=== PATIENT | female | born 1950 | race Caucasian/White ===

== ENCOUNTER 2018-11-04 13:20 | Emergency (ER) | payer MEDICARE, OTHER, SELFPAY ==
[2018-11-04 13:21] VITALS: BP 133/69; PULSE 90; RESP 16; TEMP 36.8; O2SAT 100; BMI 23.3
[2018-11-04] MEDS: 0.9% Normal Saline 1,000 ML 125 ML IV (13:56)
[2018-11-04] MEDS: Ondansetron 4 MG/2 ML Vial IV (13:57)
[2018-11-04] MEDS: Ketorolac 30 MG/ML Syringe 15 MG IV (13:57)
[2018-11-04 14:08] LABS: Absolute Lymphocyte Count 2.56 X10^3/uL (0.83-4.51); Absolute Neutrophil Count 7.7 X10^3/uL (2.0-7.7); Basophil# 0.08 X10^3/uL; Basophil% 0.7 % (0-1); Eosinophils% 0.9 % (0-5); Hemoglobin 12.7 g/dL (12.0-15.0); Lymphocyte # 2.56 X10^3/ul (4.0); Lymphocyte % 22.8 % (19-41); Mean Corp Hgb Conc 33.4 g/dL (32-36); Mean Corpuscular Hgb 28.8 pg (27.0-32.0); Mean Corpuscular Volume 86.2 fL (81-99); Mean Platelet Vol. 9.6 fl (6.2-12.0); Monocyte# 0.74 X10^3/uL; Monocyte% 6.6 % (0-10); NRBC Flagged by Analyzer 0 % (0-5); Neutrophil % 68.7 % (47-70); Platelet Count 310 K/mm3 (150-450); RBC Distribution Width CV 12.6 % (11.6-14.6); RBC Distribution Width SD 39.6 fl (35.1-43.9); Red Blood Count 4.41 M/mm3 (4.2-5.4); White Blood Count 11.2 K/mm3 (4.4-11.0)
[2018-11-04 14:21] LABS: Anion Gap 7 (5-15); BUN 13 mg/dL (7-18); BUN/Creat Ratio 17.7 RATIO (10-20); Chloride 105 mmol/L (98-107); Creatinine, Serum 0.74 mg/dL (0.55-1.02); EST Glomerular Filtration Rate 83 mL/min (>60); Est Glom Filt Rate - Afr Amer 101 mL/min (>60); Estimated Creatinine Clearance 51.63 ml/min; Glucose 85 mg/dL (74-106); Potassium 3.9 mmol/L (3.5-5.1); Sodium Level 137 mmol/L (136-145)
--- NOTE | 2018-11-04 14:30 | CT_ITS ---
STUDY: CT ABDOMEN AND PELVIS WITHOUT CONTRAST REASON FOR EXAM: Female, 67 years old. Left lower quadrant pain. RADIATION DOSAGE (If Supplied By Facility): CTDIvol = ( 10.69 ) mGy, DLP = ( 958.58 ) mGycm TECHNIQUE: Transaxial images were obtained from the dome of the diaphragm to the symphysis pubis without oral contrast, and without intravenous contrast. Sagittal and coronal images were reconstructed. Individualized dose optimization techniques were used for this CT. COMPARISON: None. FINDINGS: The visualized lung bases are unremarkable. The visualized portions of the heart are within normal limits. There is decreased attenuation of the liver consistent with steatosis. Normal gallbladder and extrahepatic biliary system. Normal spleen. Normal pancreas. Normal bilateral adrenal glands. Normal right kidney. Left renal parapelvic cysts. There is a small hiatal hernia. Fluid is seen in the lower esophagus in keeping with the patient's history of vomiting. Normal small intestine. There are multiple colonic diverticula consistent with diverticulosis. The appendix is visualized and appears normal. Normal abdominal aorta. Normal inferior vena cava. Normal retroperitoneum. Normal urinary bladder. Normal abdominal wall. There are degenerative changes of the visualized lumbar spine. CT/Abdomen/Pelvis W IV Cont ONLY IMPRESSION: Fatty infiltration of the liver. Left parapelvic renal cysts. Electronically Signed: Roger Evans, at 15:00 EDT , Service support ,
--- NOTE | 2018-11-04 14:37 | ED.DCSUM_ITS ---
- ER Visit Summary Date of Service: 11/04/18 Chief Complaint: Left lower quadrant abdominal pain History of Present Illness: The patient is a 67 F who presents the emergency department with left lower quadrant pain. She states for the past week and half she has felt that perhaps she had a urinary tract infection. She notes urgency frequency and a strong smell to the urine. She states that when she woke today she had significant pain in the left lower quadrant described as sharp worse with movement touch trying to put her pants on. He has no history of kidney stones or diverticulitis. She went to urgent care to get urine was performed that was positive for nitrates and leukocyte esterase. She was advised to come to the emergency room. She denies any fevers. She does note some nausea. Physical Examination: Afebrile vital signs are stable Gen: Well-nourished well-developed Head: Normocephalic atraumatic Eyes: Perrl EOMI ENT: TMs clear no rhinorrhea moist mucous membranes Neck: Supple no lymphadenopathy no JVD nontender CVS: Regular rate rhythm no murmurs normal S1-S2 Respiratory: No distress clear to auscultation bilaterally chest nontender Abdomen: Soft tender palpation with guarding in the left lower quadrant r nondistended normal bowel sounds no masses Back: Nontender Extremity: Nontender no edema Skin: Normal color no rash Neuro: alert orientated ?3 CN II-XII intact normal strength sensation reflexes gait cerebellar Psych: Normal affect normal mood Test Results: White count elevated 11.2. BMP is normal. Emergency Department Course and Treatment: IV fluids Toradol and Zofran. She specifically requested not to have stronger pain medication. In reviewing the CT the I believe the patient has sigmoid diverticulosis with a focal area of diverticulitis. Will place her on Cipro and Flagyl. I have asked that she follow-up with her primary care physician. I will write her a few [place] at her request but she states she would prefer to stick with ibuprofen. She had a colonoscopy 5 years ago Impression: 1. Acute sigmoid diverticulitis This note was generated with [employer] software. It may contain incorrect words, spelling, and punctuation that were not noted in review of the chart prior to signing ED Disposition - Plan for ED Patient: Disposition: Home or Assisted Living Instructions: Diverticulitis Prescriptions: Ciprofloxacin [Cipro] 500 mg PO BID #14 tab Prescription Printed metroNIDAZOLE [Flagyl] 500 mg PO Q8H #21 tab Prescription Printed Hydrocodone Bitart/Apap 5-325 [[place] 5MG-325MG] 1 tab PO Q6H PRN PRN 3 Days #10 tab PRN Reason: Pain Prescription Printed Referrals: Brayden Alberto MD [Primary Care Provider] - 3-5 Days if not improving
[2018-11-04 15:15] LABS: Mucous, Urine 0 SEEN /hpf (<or=2+)
[2018-11-04 15:23] VITALS: BP 138/77; PULSE 78; RESP 18; O2SAT 99
[2018-11-04 15:27] LABS: Color, Urine Straw (Yellow); Glucose, Dipstick Normal (Normal); Ketone-Dipstick 5 mg/dl (Negative); Leukocyte Esterase-Dipstick 500 /ul (Negative); Nitrite-Dipstick Positive (Negative); Occult Blood-Urine Negative /ul (Negative); Protein-Dipstick Negative (Negative); Urine Bilirubin Dipstick Negative (Negative); Urine Clarity Sl. Cloudy (Clear); Urine Urobilinogen Normal (Normal)
[2018-11-04 15:35] LABS: Squamous Epithelial Cells - UA 0-5 SEEN /hpf (5-10)
[2018-11-04 15:37] LABS: Bacteria 3+ /hpf (None Seen); Red Blood Cells-Urine 0-5 SEEN /hpf (0-5); White Blood Cells 0-5 SEEN /hpf (0-5)
== END 2018-11-04 15:24 | disposition home or self-care (01) ==
PROVIDERS: Emergency Provider Emergency Medicine; Family Provider Family Medicine; PCP Family Medicine
DX: K57.32 Diverticulitis of large intestine without perforation or abscess without bleeding (principal)
CPT/HCPCS: 74177; 80048; 81001; 85025; 87086; 87088; 87186; 96361; 96374; 96375; 99284; J7030; Q9967; A4216; J2405

== ENCOUNTER 2018-11-25 19:06 | Inpatient (IN) | payer MEDICARE, OTHER, SELFPAY ==
[2018-11-25 19:07] VITALS: BP 110/69; PULSE 87; RESP 17; TEMP 36.8; O2SAT 99; BMI 22.7
--- NOTE | 2018-11-25 19:38 | CT_ITS ---
STUDY: CT ABDOMEN AND PELVIS WITH CONTRAST REASON FOR EXAM: Female, 68 years old. Abdominal pain, diverticulitis, diarrhea since yesterday RADIATION DOSAGE (If Supplied By Facility): CTDIvol = ( 12.66 ) mGy, DLP = ( 550.17 ) mGycm TECHNIQUE: Transaxial images were obtained from the dome of the diaphragm to the symphysis pubis without oral contrast. IV/Oral Isovue 300 100ML was administered. Sagittal and coronal images were reconstructed. Individualized dose optimization techniques were used for this CT. COMPARISON: Previous study of 11/04/2018 FINDINGS: The visualized lung bases are unremarkable. The visualized portions of the heart are within normal limits. Normal liver. Normal gallbladder and extrahepatic biliary system. Normal spleen. Normal pancreas. Normal bilateral adrenal glands. Normal right kidney. There are left renal parapelvic cysts. There is a small hiatal hernia. Normal small intestine. There is colonic diverticulosis most severely affecting the sigmoid. There is mild perisigmoidal fatty stranding compatible with diverticulitis. There is no evidence of extraluminal gas or abnormal fluid collection. There is non-visualization of the appendix. There are calcified plaques of the abdominal aorta. Normal inferior vena cava. Normal retroperitoneum. Normal urinary bladder. There is a small umbilical hernia containing fat. There are diffuse degenerative changes of the visualized lumbar spine. CT/Abdomen/Pelvis WITH Contrast IMPRESSION: 1. Colonic diverticulosis most severely affecting the sigmoid. There is mild perisigmoidal fatty stranding compatible with diverticulitis. There is no evidence of associated extraluminal gas or abnormal fluid collection in the region. 2. Left renal parapelvic cysts. 3. Small hiatal hernia. 4. Small fat-containing umbilical hernia. Electronically Signed: George Gonzalez MD at 22:28 EDT , Service support ,
[2018-11-25] MEDS: Ondansetron 4 MG/2 ML Vial IV (20:00)
[2018-11-25] MEDS: Morphine 4 MG/ML Syringe IV ×3 (20:01→21:30)
[2018-11-25] MEDS: 0.9% Normal Saline 1,000 ML 1000 ML IV (20:02)
[2018-11-25 20:04] LABS: Absolute Lymphocyte Count 1.64 X10^3/uL (0.83-4.51); Absolute Neutrophil Count 11.8 X10^3/uL (2.0-7.7); Basophil# 0.06 X10^3/uL; Basophil% 0.4 % (0-1); Eosinophil# 0.32 X10^3/uL; Eosinophils% 2.1 % (0-5); Hematocrit 37.6 % (37-47); Hemoglobin 12.6 g/dL (12.0-15.0); Lymphocyte # 1.64 X10^3/ul (4.0); Mean Corp Hgb Conc 33.5 g/dL (32-36); Mean Corpuscular Hgb 29.1 pg (27.0-32.0); Mean Corpuscular Volume 86.8 fL (81-99); Mean Platelet Vol. 9.5 fl (6.2-12.0); Monocyte% 7.3 % (0-10); NRBC Flagged by Analyzer 0 % (0-5); Neutrophil # 11.77 X10^3/uL (2.7-7.7); Neutrophil % 78.7 % (47-70); Platelet Count 296 K/mm3 (150-450); RBC Distribution Width CV 12.8 % (11.6-14.6); RBC Distribution Width SD 40.6 fl (35.1-43.9); Red Blood Count 4.33 M/mm3 (4.2-5.4)
[2018-11-25 20:21] LABS: AST(SGOT) 14 U/L (15-37); Alanine Aminotransfer ALT/SGPT 19 U/L (13-56); Albumin, Serum 3.3 g/dL (3.2-5.0); Alkaline Phosphatase 76 U/L (45-117); Anion Gap 5 (5-15); BUN 9 mg/dL (7-18); BUN/Creat Ratio 12.2 RATIO (10-20); Bilirubin, Direct 0.16 mg/dL (0.00-0.30); Calcium,Total 8.6 mg/dL (8.5-10.1); Chloride 105 mmol/L (98-107); Creatinine, Serum 0.74 mg/dL (0.55-1.02); EST Glomerular Filtration Rate 83 mL/min (>60); Est Glom Filt Rate - Afr Amer 100 mL/min (>60); Estimated Creatinine Clearance 50.91 ml/min; Globulin 4.3 g/dL (2.2-4.2); Glucose 103 mg/dL (74-106); Lipase 100 U/L (73-393); Potassium 3.5 mmol/L (3.5-5.1); Protein, Total 7.6 g/dL (6.4-8.2); Sodium Level 136 mmol/L (136-145)
[2018-11-25 20:29] VITALS: BP 152/94; PULSE 84; RESP 16; O2SAT 100
[2018-11-25 20:53] LABS: Bacteria 0 SEEN /hpf (None Seen); Mucous, Urine 0 SEEN /hpf (<or=2+); Red Blood Cells-Urine 0 SEEN /hpf (0-5); Squamous Epithelial Cells - UA 0 SEEN /hpf (5-10)
[2018-11-25 20:56] LABS: Color, Urine Yellow (Yellow); Glucose, Dipstick Normal (Normal); Ketone-Dipstick Negative (Negative); Leukocyte Esterase-Dipstick 25 /ul (Negative); Nitrite-Dipstick Negative (Negative); Occult Blood-Urine Negative /ul (Negative); Protein-Dipstick Negative (Negative); Specific Gravity, Urine 1.005 (1.002-1.030); Urine Bilirubin Dipstick Negative (Negative); Urine Clarity Clear (Clear); Urine Urobilinogen Normal (Normal)
[2018-11-25 21:05] LABS: White Blood Cells 0-5 SEEN /hpf (0-5)
--- NOTE | 2018-11-25 22:41 | ED.VISSUMM ---
- ER Visit Summary Date of Service: 11/25/18 Chief Complaint: Abdominal pain History of Present Illness: The patient is a 68 F who is normally very healthy individual. Approximately 2 weeks ago I saw the patient here in the emergency department with left lower quadrant abdominal pain. Ultimate diagnosis was a UTI and I clinically felt she had acute diverticulitis. She is placed on Cipro and Flagyl. While her urinary symptoms improved she never fully achieved a lower abdominal pain-free state. She now notes increasing pain in the suprapubic area. She notes some diarrhea and nausea. Last night she had a fever of up to 102. She does not currently take any medications. Physical Examination: Afebrile vital signs are stable Gen: Well-nourished well-developed Head: Normocephalic atraumatic Eyes: Perrl EOMI ENT: TMs clear no rhinorrhea moist mucous membranes Neck: Supple no lymphadenopathy no JVD nontender CVS: Regular rate rhythm no murmurs normal S1-S2 Respiratory: No distress clear to auscultation bilaterally chest nontender Abdomen: Soft there is tenderness guarding and rebound in the suprapubic region nondistended normal bowel sounds no masses Back: Nontender Extremity: Nontender no edema Skin: Normal color no rash Neuro: alert orientated ?3 CN II-XII intact normal strength sensation reflexes gait cerebellar Psych: Normal affect normal mood Test Results: White count is elevated at 15. Urinalysis is normal. CT of the pelvis demonstrates acute sigmoid diverticulitis. Emergency Department Course and Treatment: Patient received IV fluids morphine and Zofran. She continues to have pain and is received additional morphine. Also gave her Zosyn. I think at this point given her fever last night her physical exam lab and CT findings the patient be best served admitted to the hospital. Impression: 1. Acute sigmoid diverticulitis This note was generated with [employer] dictation software. It may contain incorrect words, spelling, and punctuation that were not noted in review of the chart prior to signing ED Disposition - Plan for ED Patient: Referrals: Brayden Alberto MD [Primary Care Provider] -
[2018-11-25 23:09] VITALS: BP 138/67; PULSE 81; RESP 10; O2SAT 99
[2018-11-25 23:14] VITALS: BP 137/86; PULSE 82; RESP 16; TEMP 36.6; O2SAT 97
--- NOTE | 2018-11-25 23:14 | HP.PCM_ITS ---
Problem List (1) Sigmoid diverticulitis Status: Acute History of Present Illness Date of Admission: 11/25/18 Chief Complaint: Abdominal pain for 2 weeks The patient is a 68 year old F with history of recent sigmoid diverticulitis and ER visit on 11/04/2018 came back to ER for diffuse abdominal pain ongoing for 2 weeks. Patient was seen in the ER about 2 weeks ago and was discharged on Cipro and Flagyl but pain got worse. Patient also had fever and chills. Had colonoscopy about 5 years ago and was negative as per the patient. Denies family history of colon cancer or heart disease. In ED, patient did not had fever noted. No tachycardia. Blood pressure is stable. No hypoxia or tachypnea. Leukocytosis with left shift noted on CBC. CT abdomen 1 done and shows mild perisigmoid fatty stranding compatible with sigmoid diverticulitis with no evidence of fluid collection or perforation. Past Medical History Allergies No Known Allergies Allergy (Verified 11/25/18 19:07) Home Medications: Ambulatory Orders Medication Instructions Recorded NK 11/25/18 Smoking Status: Never smoker - *Family History Paternal History Items: No pertinent history - Colon cancer or heart disease Review of Systems Constitutional: Reports: Chills, Fever HEENT: Denies: Head Aches, Sinus Congestion, Sinus Drainage Cardiovascular: Denies: Chest Pain, Palpitations Respiratory: Denies: Cough, Shortness of breath at rest, Sputum production Gastrointestinal: Reports: Abdominal Pain, Hematochezia - Patient states mild rectal bleed, dark stool., Nausea. Denies: Vomiting Genitourinary: Denies: Dysuria Musculoskeletal: Denies: Joint Pain, Joint Tenderness Skin: Denies: Rash, Wounds Neurological: Denies: Numbness, Tingling, Focal weakness Psychiatric: Denies: Anxiety, Depression, Homicidal Ideations, Suicidal Ideations Hematologic/ Lymphatic: Denies: Easy Bruising, Easy Bleeding VTE Information - Inpt Only VTE Present on Admission: No VTE Mechan Device Prophylaxis: SCD's VTE Pharm Prophylaxis ordered?: No Reason prophylaxis not ordered:: Medical Contraindication - rectal bleed Patient Problems: Active and Suspected Problems Sigmoid diverticulitis (Acute) - Physical Exam General: Alert, Oriented x3, Cooperative HEENT: Atraumatic, PERRLA, EOMI, Normocephalic Neck: Supple, No JVD, Negative Carotid Bruits Lungs: Clear to auscultation, Normal air movement Cardiovascular: Regular rate, Regular Rhythm, Normal S1, Normal S2, No murmurs Abdomen: Bowel Sounds Present, Soft, Non-Distended, Tender - Diffuse tenderness present all over the abdomen but predominantly and severe in left lower quadrant. Extremities: No edema, Capillary Refill Less than 3 Seconds Skin: No rashes, No breakdown Musculoskeletal: No Tenderness to Palpation of Joints or Extremities Neurological: Cranial nerves II-XII grossly intact, Deep Tendon Reflexes 2+/4 and Symmetrical, Neuro grossly intact, Motor Exam 5/5 strength throughout Psych/Mental Status: Normal Affect, Appropriate Vital Signs Temp Pulse Resp BP Pulse Ox 98.3 F 81 10 L 138/67 H 99 11/25/18 19:07 11/25/18 23:09 11/25/18 23:09 11/25/18 23:09 11/25/18 23:09 Oxygen Delivery Method Room Air Weight: 145 lb 1.027 oz Body Mass Index (BMI) 22.7 Intake and Output for Last 24 Hours 11/23/18 11/24/18 11/25/18 23:59 23:59 23:59 Intake Total 1000 / 1000 Balance 1000 / 1000 Laboratory Tests Past 24 Hrs 11/25/18 11/25/18 11/25/18 19:50 19:50 20:51 WBC 15.0 H RBC 4.33 Hgb 12.6 Hct 37.6 MCV 86.8 MCH 29.1 MCHC 33.5 RDW Std Deviation 40.6 RDW Coeff of Heather 12.8 Plt Count 296 MPV 9.5 Immature Gran % (Auto) 0.500 Neut % (Auto) 78.7 H Lymph % (Auto) 11.0 L Reynolds % (Auto) 7.3 Eos % (Auto) 2.1 Baso % (Auto) 0.4 Absolute Neuts (auto) 11.8 H Absolute Lymphs (auto) 1.64 Nucleated RBC % 0 Sodium 136 Potassium 3.5 Chloride 105 Carbon Dioxide 26.0 Anion Gap 5 BUN 9 Creatinine 0.74 Estim Creat Clear Calc 50.91 Est GFR (MDRD) Af Amer 100 Est GFR (MDRD) Non-Af 83 BUN/Creatinine Ratio 12.2 Glucose 103 Calcium 8.6 Total Bilirubin 0.40 Direct Bilirubin 0.16 AST 14 L ALT 19 Alkaline Phosphatase 76 Total Protein 7.6 Albumin 3.3 Globulin 4.3 H Lipase 100 Urine Color Yellow Urine Clarity Clear Urine pH 7.0 Ur Specific [place] 1.005 Urine Protein Negative Urine Glucose (UA) Normal Urine Ketones Negative Urine Occult Blood Negative Urine Nitrite Negative Urine Bilirubin Negative Urine Urobilinogen Normal Ur Leukocyte Esterase 25 H Urine RBC 0 SEEN Urine WBC 0-5 SEEN Ur Squamous Epith Cells 0 SEEN Urine Bacteria 0 SEEN Urine Mucus 0 SEEN Assessment/Plan All Active Problems Sigmoid diverticulitis (Acute) The patient is a 68 year old F with history of recent sigmoid diverticulitis and ER visit on 11/04/2018 came back to ER for diffuse abdominal pain ongoing for 2 weeks. Patient was seen in the ER about 2 weeks ago and was discharged on Cipro and Flagyl but pain got worse. Patient also had fever and chills. Had colonoscopy about 5 years ago and was negative as per the patient. CT abdomen 1 done and shows mild perisigmoid fatty stranding compatible with sigmoid diverticulitis with no evidence of fluid collection or perforation. 1. Acute sigmoid diverticulitis, failed outpatient treatment: Patient is being admitted on [facility] floor. IV fluid normal saline at 125 mill per hour. Blood cultures x2 ordered. UA is negative. Started on IV Zosyn in ER and will continue it. Patient had colonoscopy negative about 5 years ago. Recommended colonoscopy after 1 to 2 months of resolution of sigmoid diverticulitis. Patient does not have fever chills or tachycardia Sirs criteria except leuk ocytosis. Lactic acid ordered. Stool for occult blood and lactoferrin ordered. 2. DVT prophylaxis: Bilateral SCDs. Pharmacological prophylaxis contraindicated secondary to rectal bleed. Laboratory Results 11/25/18 19:50: WBC 15.0 H, RBC 4.33, Hgb 12.6, Hct 37.6, MCV 86.8, MCH 29.1, MCHC 33.5, RDW Std Deviation 40.6, RDW Coeff of Heather 12.8, Plt Count 296, MPV 9.5, Immature Gran % (Auto) 0.500, Neut % (Auto) 78.7 H, Lymph % (Auto) 11.0 L, Reynolds % (Auto) 7.3, Eos % (Auto) 2.1, Baso % (Auto) 0.4, Absolute Neuts (auto) 11.8 H, Absolute Lymphs (auto) 1.64, Nucleated RBC % 0 11/25/18 19:50: Sodium 136, Potassium 3.5, Chloride 105, Carbon Dioxide 26.0, Anion Gap 5, BUN 9, Creatinine 0.74, Estim Creat Clear Calc 50.91, Est GFR (MDRD) Af Amer 100, Est GFR (MDRD) Non-Af 83, BUN/Creatinine Ratio 12.2, Glucose 103, Calcium 8.6, Total Bilirubin 0.40, Direct Bilirubin 0.16, AST 14 L, ALT 19, Alkaline Phosphatase 76, Total Protein 7.6, Albumin 3.3, Globulin 4.3 H, Lipase 100 11/25/18 20:51: Urine Color Yellow, Urine Clarity Clear, Urine pH 7.0, Ur Specific [place] 1.005, Urine Protein Negative, Urine Glucose (UA) Normal, Urine Ketones Negative, Urine Occult Blood Negative, Urine Nitrite Negative, Urine Bilirubin Negative, Urine Urobilinogen Normal, Ur Leukocyte Esterase 25 H, Urine RBC 0 SEEN, Urine WBC 0-5 SEEN, Ur Squamous Epith Cells 0 SEEN, Urine Bacteria 0 SEEN, Urine Mucus 0 SEEN Clinical Impression(s) from Imaging Studies Abdomen/Pelvis CT 11/25/18 19:38 IMPRESSION: 1. Colonic diverticulosis most severely affecting the sigmoid. There is mild perisigmoidal fatty stranding compatible with diverticulitis. There is no evidence of associated extraluminal gas or abnormal fluid collection in the region. 2. Left renal parapelvic cysts. 3. Small hiatal hernia. 4. Small fat-containing umbilical hernia. Code Visit Inpatient E&M: 88651 Init Hosp L2
[2018-11-25 23:56] VITALS: BP 137/68; PULSE 80; RESP 23; O2SAT 99
[2018-11-26 00:28] VITALS: BMI 21.9
[2018-11-26 00:29] VITALS: BP 128/67; PULSE 84; RESP 18; TEMP 36.9
[2018-11-26] MEDS: 0.9% Normal Saline 1,000 ML 125 ML IV ×4 (01:19→23:58)
[2018-11-26] MEDS: oxyCODONE 5 MG Tablet PO ×2 (01:19→06:55)
[2018-11-26] MEDS: Acetaminophen 325 MG Tablet 650 MG PO ×3 (04:03→20:24)
[2018-11-26] MEDS: HYDROmorphone 1 MG/ML Syringe IV ×5 (04:04→22:12)
[2018-11-26 06:09] LABS: Absolute Neutrophil Count 10.4 X10^3/uL (2.0-7.7); Basophil# 0.07 X10^3/uL; Basophil% 0.5 % (0-1); Eosinophils% 2.2 % (0-5); Hematocrit 31.2 % (37-47); Hemoglobin 10.2 g/dL (12.0-15.0); Lymphocyte % 12.6 % (19-41); Mean Corp Hgb Conc 32.7 g/dL (32-36); Mean Corpuscular Hgb 28.8 pg (27.0-32.0); Mean Corpuscular Volume 88.1 fL (81-99); Mean Platelet Vol. 9.7 fl (6.2-12.0); Monocyte# 1.06 X10^3/uL; Monocyte% 7.8 % (0-10); NRBC Flagged by Analyzer 0 % (0-5); Neutrophil # 10.35 X10^3/uL (2.7-7.7); Neutrophil % 76.5 % (47-70); Platelet Count 246 K/mm3 (150-450); RBC Distribution Width CV 12.9 % (11.6-14.6); Red Blood Count 3.54 M/mm3 (4.2-5.4); White Blood Count 13.5 K/mm3 (4.4-11.0)
[2018-11-26 06:25] LABS: Anion Gap 7 (5-15); BUN 8 mg/dL (7-18); BUN/Creat Ratio 13.1 RATIO (10-20); Calcium,Total 7.9 mg/dL (8.5-10.1); Chloride 109 mmol/L (98-107); Creatinine, Serum 0.61 mg/dL (0.55-1.02); EST Glomerular Filtration Rate 103 mL/min (>60); Est Glom Filt Rate - Afr Amer 125 mL/min (>60); Estimated Creatinine Clearance 50.91 ml/min; Glucose 106 mg/dL (74-106); Potassium 3.8 mmol/L (3.5-5.1); Sodium Level 140 mmol/L (136-145)
[2018-11-26] MEDS: 0.9% NaCl IVPB Med Flush (250 mL) 15 ML IV (06:25)
[2018-11-26 06:28] VITALS: BP 112/70; PULSE 73; RESP 18; TEMP 36.6; O2SAT 97
--- NOTE | 2018-11-26 08:23 | PCM.PN.HOSP ---
Patient Problems: Active and Suspected Problems Sigmoid diverticulitis (Acute) Subjective: CC follow-up acute sigmoid diverticulitis Patient is a 68-year-old lady who was diagnosed with acute diverticulitis on 11/04/2018 presented back to the ED with worsening pain. Imaging studies obtained in the ED was compatible with diverticulitis involving the sigmoid colon. Admitted to regular nursing floor for further management Objective: GENERAL: cooperative HEENT: Atraumatic; EYES; Anicteric, Normal Conjunctiva NECK; supple, normal thyroid, RESPIRATORY: Diminished to auscultation CARDIOVASCULAR: Regular S1 S2, GI: soft, normoactive bowel sounds, LLQ tenderness : No Renal angle tenderness; EXTREMITIES: No edema, no clubbing, MUSCULOSKELETAL: No Joint Tenderness; NEURO: Awake; no lateralizing signs. SKIN: No Rash PSYCH; Normal affect Vitals/I&O's: Vital Signs Temp Pulse Resp BP Pulse Ox 98 F 73 18 112/70 97 11/26/18 06:28 11/26/18 06:28 11/26/18 06:28 11/26/18 06:28 11/26/18 06:28 Oxygen Delivery Method Room Air Weight: 63.503 kg Body Mass Index (BMI) 21.9 Intake and Output for Last 24 Hours 11/24/18 11/25/18 11/26/18 23:59 23:59 23:59 Intake Total 1000 / 1000 1100 / 1100 Balance 1000 / 1000 1100 / 1100 Microbiology Past 72 Hours 11/26/18 01:40 Stool Stool Lactoferrin - Final 11/26/18 01:40 Stool Stool Occult Blood (INES) - Final Occult Blood Positive Laboratory Results 11/25/18 19:50: WBC 15.0 H, RBC 4.33, Hgb 12.6, Hct 37.6, MCV 86.8, MCH 29.1, MCHC 33.5, RDW Std Deviation 40.6, RDW Coeff of Heather 12.8, Plt Count 296, MPV 9.5, Immature Gran % (Auto) 0.500, Neut % (Auto) 78.7 H, Lymph % (Auto) 11.0 L, [place] % (Auto) 7.3, Eos % (Auto) 2.1, Baso % (Auto) 0.4, Absolute Neuts (auto) 11.8 H, Absolute Lymphs (auto) 1.64, Nucleated RBC % 0 11/25/18 19:50: Sodium 136, Potassium 3.5, Chloride 105, Carbon Dioxide 26.0, Anion Gap 5, BUN 9, Creatinine 0.74, Estim Creat Clear Calc 50.91, Est GFR (MDRD) Af Amer 100, Est GFR (MDRD) Non-Af 83, BUN/Creatinine Ratio 12.2, Glucose 103, Calcium 8.6, Total Bilirubin 0.40, Direct Bilirubin 0.16, AST 14 L, ALT 19, Alkaline Phosphatase 76, Total Protein 7.6, Albumin 3.3, Globulin 4.3 H, Lipase 100 11/25/18 20:51: Urine Color Yellow, Urine Clarity Clear, Urine pH 7.0, Ur Specific [place] 1.005, Urine Protein Negative, Urine Glucose (UA) Normal, Urine Ketones Negative, Urine Occult Blood Negative, Urine Nitrite Negative, Urine Bilirubin Negative, Urine Urobilinogen Normal, Ur Leukocyte Esterase 25 H, Urine RBC 0 SEEN, Urine WBC 0-5 SEEN, Ur Squamous Epith Cells 0 SEEN, Urine Bacteria 0 SEEN, Urine Mucus 0 SEEN 11/26/18 01:24: Lactic Acid 1.0 11/26/18 05:30: WBC 13.5 H, RBC 3.54 L, Hgb 10.2 L, Hct 31.2 L, MCV 88.1, MCH 28.8, MCHC 32.7, RDW Std Deviation 42.0, RDW Coeff of Heather 12.9, Plt Count 246, MPV 9.7, Immature Gran % (Auto) 0.400, Neut % (Auto) 76.5 H, Lymph % (Auto) 12.6 L, [place] % (Auto) 7.8, Eos % (Auto) 2.2, Baso % (Auto) 0.5, Absolute Neuts (auto) 10.4 H, Absolute Lymphs (auto) 1.70, Nucleated RBC % 0 11/26/18 05:30: Sodium 140, Potassium 3.8, Chloride 109 H, Carbon Dioxide 24.0, Anion Gap 7, BUN 8, Creatinine 0.61, Estim Creat Clear Calc 50.91, Est GFR (MDRD) Af Amer 125, Est GFR (MDRD) Non-Af 103, BUN/Creatinine Ratio 13.1, Glucose 106, Calcium 7.9 L Current Medications Acetaminophen (Tylenol) 650 mg PO Q6H PRN PRN PRN Reason: Mild Pain (1-3)/Temp > 100.7 F Last Admin: 11/26/18 04:03 Dose: 650 mg Documented by: Famotidine (Pepcid) 20 mg PO BID CHARLENE Hydromorphone HCl (Dilaudid Inj) 1 mg IV Q4H PRN PRN PRN Reason: Severe pain (7-10/10) Last Admin: 11/26/18 04:04 Dose: 1 mg Documented by: Sodium Chloride () 1,000 mls @ 125 mls/hr IV .Q8H CHARLENE Last Admin: 11/26/18 01:19 Dose: 125 mls/hr Documented by: Piperacillin Sod/Tazobactam (Sod 3.375 gm/ Sodium Chloride) 50 mls @ 12.5 mls/hr IV Q8 CHARLENE Last Admin: 11/26/18 06:24 Dose: 12.5 mls/hr Documented by: Sodium Chloride () 250 mls @ 15 mls/hr IV .[id number] PRN PRN Reason: SALINE FLUSH Last Infusion: 11/26/18 06:25 Dose: 0 mls/hr Documented by: Nitroglycerin (Nitrostat) 0.4 mg SUBLINGUAL Q5M PRN PRN Reason: CARDIAC/CHEST PAIN Nutritional Formula (Lactose Free) (Ensure Enlive) 120 ml PO 4X/DAY [facility] Oxycodone HCl (Oxyir) 5 mg PO Q4H PRN PRN PRN Reason: Moderate Pain (4-6/10) Last Admin: 11/26/18 06:55 Dose: 5 mg Documented by: Sodium Chloride () 5 - 15 ml IV UD PRN PRN Reason: SALINE FLUSH Medical Necessity - Tobacco Use Smoking Status: Never smoker Assessment/Plan All Active Problems Sigmoid diverticulitis (Acute) Patient is a 68-year-old lady who was diagnosed with acute diverticulitis on 11/04/2018 presented back to the ED with worsening pain. Imaging studies obtained in the ED was compatible with diverticulitis involving the sigmoid colon. Admitted to regular nursing floor for further management 1. Acute sigmoid diverticulitis ~patient did fail outpatient treatment admitted to regular nursing floor started on Zosyn. Patient was also treated symptomatically with pain meds as well as antinausea medication 4. Diarrhea ~possibly related to patient diverticulitis however given patient recent antibiotic use patient was placed in enteric precautions as well as ruling out C. difficile colitis 3. History of lumbar fusion surgery ~18 years ago patient has since remained asymptomatic 4. DVT prophylaxis bilateral SCDs. Active Medications Acetaminophen (Tylenol) 650 mg PO Q6H PRN PRN PRN Reason: Mild Pain (1-3)/Temp > 100.7 F Last Admin: 11/26/18 04:03 Dose: 650 mg Documented by: Famotidine (Pepcid) 20 mg PO BID [facility] Hydromorphone HCl (Dilaudid Inj) 1 mg IV Q4H PRN PRN PRN Reason: Severe pain (7-10/10) Last Admin: 11/26/18 04:04 Dose: 1 mg Documented by: Sodium Chloride () 1,000 mls @ 125 mls/hr IV .Q8H [facility] Last Admin: 11/26/18 01:19 Dose: 125 mls/hr Documented by: Piperacillin Sod/Tazobactam (Sod 3.375 gm/ Sodium Chloride) 50 mls @ 12.5 mls/hr IV Q8 CHARLENE Last Admin: 11/26/18 06:24 Dose: 12.5 mls/hr Documented by: Sodium Chloride () 250 mls @ 15 mls/hr IV .[id number] PRN PRN Reason: SALINE FLUSH Last Infusion: 11/26/18 06:25 Dose: 0 mls/hr Documented by: Nitroglycerin (Nitrostat) 0.4 mg SUBLINGUAL Q5M PRN PRN Reason: CARDIAC/CHEST PAIN Nutritional Formula (Lactose Free) (Ensure Enlive) 120 ml PO 4X/DAY [facility] Oxycodone HCl (Oxyir) 5 mg PO Q4H PRN PRN PRN Reason: Moderate Pain (4-6/10) Last Admin: 11/26/18 06:55 Dose: 5 mg Documented by: Sodium Chloride () 5 - 15 ml IV UD PRN PRN Reason: SALINE FLUSH Clinical Impression(s) from Imaging Studies Abdomen/Pelvis CT 11/25/18 19:38 IMPRESSION: 1. Colonic diverticulosis most severely affecting the sigmoid. There is mild perisigmoidal fatty stranding compatible with diverticulitis. There is no evidence of associated extraluminal gas or abnormal fluid collection in the region. 2. Left renal parapelvic cysts. 3. Small hiatal hernia. 4. Small fat-containing umbilical hernia. Code Visit Inpatient E&M: 67044 Subs Hosp L2
[2018-11-26 09:12] VITALS: BP 123/63; PULSE 73; RESP 16; TEMP 37; O2SAT 99
[2018-11-26] MEDS: Ondansetron 4 MG/2 ML Vial IV ×2 (09:14→22:13)
[2018-11-26] MEDS: Famotidine 20 MG Tablet PO ×2 (09:14→21:53)
[2018-11-26] MEDS: 0.9% NaCl Peripheral Flush Adult/Peds IV ×2 (09:14→22:12)
--- NOTE | 2018-11-26 09:33 | CASEMGMT ---
As per admitting RN, pt had stated that she has LW/POA forms, and her Jayjay is POA. She is not able to bring in the documents at this time however. GARLAND Nguyễn
--- NOTE | 2018-11-26 11:40 | CASEMGMT ---
RN CM Assessment Introduced role of RN CM to patient.? Patient is alert, oriented and able?to participate in RN CM Assessment. ?Care providers, pharmacy, and demographics verified. Presentation: Seen in ER on 11/04/18 for LLQ Abd pain, Dz w/UTI and clinically felt Diverticulitis and placed on Cipro and Flagyl. C/o upper pain to suprapubic area, diarrhea, nausea. Admit Dx: Sigmoid Diverticulitis Re-Admit: No Barriers/Issues: None PCP: Brayden Ablerto Specialists: None Preferred Pharmacy: [facility] Insurance: MCR A&B, AARP Rx Benefit:?Yes AARP ?LNOK: Jorge Luis Drainer LW/HPOA: Yes both, aware not on file with [facility], made aware will scan on file when brings a copy in. HPOA- Jorge Luis Drainer. Living Arrangements:? Lives with in a 2 story home, Bedroom on upper level. 2 steps to enter front, 6 steps through the back. ADL?s: Independent with ambulation and ADLs Transportation: Both patient and drive DME: None HHC: None SNF: None Goal: Home and does not think will have any needs. Denies any questions/concerns/or issues with DC planning. Aware CM remains available for any emerging needs. DC PLAN: Home with no anticipated needs identified at this time. CHARLOTTE Steele
[2018-11-26 14:44] VITALS: BP 139/71; PULSE 77; RESP 18; TEMP 37.6; O2SAT 100
[2018-11-26 20:27] VITALS: BP 135/67; PULSE 76; RESP 16; TEMP 37; O2SAT 99
[2018-11-27 02:40] VITALS: BP 130/72; PULSE 85; RESP 18; TEMP 36.8; O2SAT 97
[2018-11-27] MEDS: oxyCODONE 5 MG Tablet PO ×2 (02:49→07:52)
[2018-11-27] MEDS: 0.9% Normal Saline 1,000 ML 125 ML IV ×3 (05:35→21:24)
[2018-11-27] MEDS: HYDROmorphone 1 MG/ML Syringe IV ×4 (05:46→23:59)
[2018-11-27] MEDS: 0.9% NaCl Peripheral Flush Adult/Peds IV ×3 (05:46→23:59)
[2018-11-27 06:05] LABS: Absolute Lymphocyte Count 1.52 X10^3/uL (0.83-4.51); Absolute Neutrophil Count 8.3 X10^3/uL (2.0-7.7); Basophil# 0.06 X10^3/uL; Basophil% 0.5 % (0-1); Eosinophil# 0.52 X10^3/uL; Eosinophils% 4.7 % (0-5); Hematocrit 29.3 % (37-47); Hemoglobin 9.7 g/dL (12.0-15.0); Lymphocyte # 1.52 X10^3/ul (4.0); Lymphocyte % 13.7 % (19-41); Mean Corp Hgb Conc 33.1 g/dL (32-36); Mean Corpuscular Hgb 28.9 pg (27.0-32.0); Mean Corpuscular Volume 87.2 fL (81-99); Monocyte# 0.72 X10^3/uL; Monocyte% 6.5 % (0-10); NRBC Flagged by Analyzer 0 % (0-5); Neutrophil # 8.26 X10^3/uL (2.7-7.7); Neutrophil % 74.3 % (47-70); Platelet Count 233 K/mm3 (150-450); RBC Distribution Width SD 41.4 fl (35.1-43.9); Red Blood Count 3.36 M/mm3 (4.2-5.4); White Blood Count 11.1 K/mm3 (4.4-11.0)
[2018-11-27 06:35] LABS: Anion Gap 9 (5-15); BUN 4 mg/dL (7-18); BUN/Creat Ratio 7.6 RATIO (10-20); Calcium,Total 7.9 mg/dL (8.5-10.1); Chloride 109 mmol/L (98-107); Creatinine, Serum 0.52 mg/dL (0.55-1.02); EST Glomerular Filtration Rate 123 mL/min (>60); Est Glom Filt Rate - Afr Amer 149 mL/min (>60); Estimated Creatinine Clearance 50.91 ml/min; Glucose 90 mg/dL (74-106); Magnesium 1.9 mg/dL (1.6-2.6); Potassium 3.5 mmol/L (3.5-5.1); Sodium Level 140 mmol/L (136-145)
--- NOTE | 2018-11-27 07:13 | PN_ITS ---
Patient Problems: Active and Suspected Problems Sigmoid diverticulitis (Acute) Subjective: CC follow-up diverticulitis Patient is a 68-year-old lady admitted with diverticulitis having failed outpatient treatment. She did complain of several bouts of loose bowel movement. Stool for C. difficile assay obtained came back positive subsequently started on p.o. vancomycin Objective: GENERAL: cooperative HEENT: Atraumatic; EYES; Anicteric, Normal Conjunctiva NECK; supple, normal thyroid, RESPIRATORY: Diminished to auscultation CARDIOVASCULAR: Regular S1 S2, GI: soft, normoactive bowel sounds, LLQ tenderness : No Renal angle tenderness; EXTREMITIES: No edema, no clubbing, MUSCULOSKELETAL: No Joint Tenderness; NEURO: Awake; no lateralizing signs. SKIN: No Rash PSYCH; Normal affect Vitals/I&O's: Vital Signs Temp Pulse Resp BP Pulse Ox 98.3 F 85 18 130/72 H 97 11/27/18 02:40 11/27/18 02:40 11/27/18 02:40 11/27/18 02:40 11/27/18 02:40 Oxygen Delivery Method Room Air Weight: 65.8 kg Body Mass Index (BMI) 21.9 Intake and Output for Last 24 Hours 11/25/18 11/26/18 11/27/18 23:59 23:59 23:59 Intake Total 1000 / 1000 5534.66 / 5534.66 1067.58 / 1067.58 Balance 1000 / 1000 5534.66 / 5534.66 1067.58 / 1067.58 Microbiology Past 72 Hours 11/25/18 09:10 Stool C. difficile DNA Amplification - Final Toxigenic C. difficile DNA 11/26/18 01:40 Stool Stool Lactoferrin - Final 11/26/18 01:40 Stool Stool Occult Blood (INES) - Final Occult Blood Positive Laboratory Results 11/27/18 05:30: WBC 11.1 H, RBC 3.36 L, Hgb 9.7 L, Hct 29.3 L, MCV 87.2, MCH 28.9, MCHC 33.1, RDW Std Deviation 41.4, RDW Coeff of Heather 13.0, Plt Count 233, MPV 10.0, Immature Gran % (Auto) 0.300, Neut % (Auto) 74.3 H, Lymph % (Auto) 13.7 L, [place] % (Auto) 6.5, Eos % (Auto) 4.7, Baso % (Auto) 0.5, Absolute Neuts (auto) 8.3 H, Absolute Lymphs (auto) 1.52, Nucleated RBC % 0 11/27/18 05:30: Sodium 140, Potassium 3.5, Chloride 109 H, Carbon Dioxide 22.0, Anion Gap 9, BUN 4 L, Creatinine 0.52 L, Estim Creat Clear Calc 50.91, Est GFR (MDRD) Af Amer 149, Est GFR (MDRD) Non-Af 123, BUN/Creatinine Ratio 7.6 L, Glucose 90, Calcium 7.9 L, Magnesium 1.9 Current Medications Acetaminophen (Tylenol) 650 mg PO Q6H PRN PRN PRN Reason: Mild Pain (1-3)/Temp > 100.7 F Last Admin: 11/26/18 20:24 Dose: 650 mg Documented by: Famotidine (Pepcid) 20 mg PO BID [facility] Last Admin: 11/26/18 21:53 Dose: 20 mg Documented by: Hydromorphone HCl (Dilaudid Inj) 1 mg IV Q4H PRN PRN PRN Reason: Severe pain (-11/27) Last Admin: 11/27/18 05:46 Dose: 1 mg Documented by: Sodium Chloride () 1,000 mls @ 125 mls/hr IV .Q8H [facility] Last Admin: 11/27/18 05:35 Dose: 125 mls/hr Documented by: Piperacillin Sod/Tazobactam (Sod 3.375 gm/ Sodium Chloride) 50 mls @ 12.5 mls/hr IV Q8 [facility] Last Admin: 11/27/18 05:36 Dose: 12.5 mls/hr Documented by: Sodium Chloride () 250 mls @ 15 mls/hr IV .[id number] PRN PRN Reason: SALINE FLUSH Last Infusion: 11/27/18 02:53 Dose: 0 mls/hr Documented by: Nitroglycerin (Nitrostat) 0.4 mg SUBLINGUAL Q5M PRN PRN Reason: CARDIAC/CHEST PAIN Nutritional Formula (Lactose Free) (Ensure Enlive) 120 ml PO 4X/DAY [facility] Last Admin: 11/26/18 22:10 Dose: Not Given Documented by: Ondansetron HCl (Zofran) 4 mg IV Q6H PRN PRN PRN Reason: NAUSEA/VOMITING Last Admin: 11/26/18 22:13 Dose: 4 mg Documented by: Oxycodone HCl (Oxyir) 5 mg PO Q4H PRN PRN PRN Reason: Moderate Pain (4-6/10) Last Admin: 11/27/18 02:49 Dose: 5 mg Documented by: Sodium Chloride () 5 - 15 ml IV UD PRN PRN Reason: SALINE FLUSH Last Admin: 11/27/18 05:46 Dose: 10 ml Documented by: Vancomycin HCl () 125 mg PO Q6 [facility] Last Admin: 11/27/18 05:36 Dose: 125 mg Documented by: Medical Necessity - Tobacco Use Smoking Status: Never smoker Assessment/Plan All Active Problems Sigmoid diverticulitis (Acute) Patient is a 68-year-old lady who was diagnosed with acute diverticulitis on 11/04/2018 presented back to the ED with worsening pain. Imaging studies obtained in the ED was compatible with diverticulitis involving the sigmoid colon. Admitted to regular nursing floor for further management 1. Acute sigmoid diverticulitis ~patient did fail outpatient treatment admitted to regular nursing floor started on Zosyn. Patient was also treated symptomatically with pain meds as well as antinausea medication. ~11/27/2018 patient was apparently treated for total of 2 weeks of p.o. antibiotics Zosyn subsequently discontinued the suspected patient findings to be secondary to C. difficile colitis management of which has been discussed as below 4. Acute C. difficile colitis again (probably present on admission prior to patient being admitted) ~was placed in enteric isolation and started on p.o. vancomycin 3. History of lumbar fusion surgery ~18 years ago patient has since remained asymptomatic 4. DVT prophylaxis bilateral SCDs. Code Visit Inpatient E&M: 58594 Subs Hosp L2
[2018-11-27] MEDS: Acetaminophen 325 MG Tablet 650 MG PO (07:51)
[2018-11-27] MEDS: Famotidine 20 MG Tablet PO ×2 (07:51→21:15)
[2018-11-27 07:59] VITALS: BP 120/67; PULSE 65; RESP 16; TEMP 37.2; O2SAT 97
[2018-11-27 08:15] VITALS: O2SAT 96
[2018-11-27] MEDS: Ondansetron 4 MG/2 ML Vial IV ×2 (13:33→19:37)
[2018-11-27 13:38] VITALS: BP 116/61; PULSE 67; RESP 18; TEMP 36.9; O2SAT 96
[2018-11-27 18:08] VITALS: BP 143/76; PULSE 73; RESP 16; TEMP 36.8; O2SAT 97
[2018-11-27 23:47] VITALS: BP 137/71; PULSE 70; RESP 16; TEMP 36.2; O2SAT 98
[2018-11-28] MEDS: HYDROmorphone 1 MG/ML Syringe IV ×3 (05:42→18:38)
[2018-11-28] MEDS: Ondansetron 4 MG/2 ML Vial IV ×2 (05:42→13:59)
[2018-11-28] MEDS: 0.9% Normal Saline 1,000 ML 125 ML IV ×3 (05:43→21:56)
[2018-11-28 05:52] VITALS: BP 138/69; PULSE 69; RESP 18; TEMP 37; O2SAT 98
[2018-11-28 05:58] LABS: Basophil# 0.06 X10^3/uL; Basophil% 0.8 % (0-1); Eosinophil# 0.61 X10^3/uL; Eosinophils% 8.1 % (0-5); Hematocrit 28.8 % (37-47); Hemoglobin 9.7 g/dL (12.0-15.0); Mean Corp Hgb Conc 33.7 g/dL (32-36); Mean Corpuscular Hgb 29.4 pg (27.0-32.0); Mean Corpuscular Volume 87.3 fL (81-99); Mean Platelet Vol. 9.8 fl (6.2-12.0); Monocyte# 0.69 X10^3/uL; Monocyte% 9.2 % (0-10); NRBC Flagged by Analyzer 0 % (0-5); Neutrophil # 4.02 X10^3/uL (2.7-7.7); Neutrophil % 53.6 % (47-70); Platelet Count 253 K/mm3 (150-450); RBC Distribution Width CV 12.4 % (11.6-14.6); RBC Distribution Width SD 39.9 fl (35.1-43.9); White Blood Count 7.5 K/mm3 (4.4-11.0)
[2018-11-28 06:25] LABS: Anion Gap 8 (5-15); BUN 4 mg/dL (7-18); BUN/Creat Ratio 7.6 RATIO (10-20); Calcium,Total 7.9 mg/dL (8.5-10.1); Chloride 110 mmol/L (98-107); Creatinine, Serum 0.53 mg/dL (0.55-1.02); EST Glomerular Filtration Rate 122 mL/min (>60); Est Glom Filt Rate - Afr Amer 147 mL/min (>60); Estimated Creatinine Clearance 50.91 ml/min; Glucose 117 mg/dL (74-106); Sodium Level 141 mmol/L (136-145)
--- NOTE | 2018-11-28 08:38 | PN_ITS ---
Patient Problems: Active and Suspected Problems Sigmoid diverticulitis (Acute) C. difficile colitis (Acute) Subjective: CC follow-up C. difficile colitis Patient seen started on p.o. vancomycin 2 days prior however she still continues to experience significant diarrhea. Potassium down to 3.0 this a.m. repletion initiated Objective: GENERAL: cooperative HEENT: Atraumatic; EYES; Anicteric, Normal Conjunctiva NECK; supple, normal thyroid, RESPIRATORY: Diminished to auscultation CARDIOVASCULAR: Regular S1 S2, GI: soft, normoactive bowel sounds, LLQ tenderness : No Renal angle tenderness; EXTREMITIES: No edema, no clubbing, MUSCULOSKELETAL: No Joint Tenderness; NEURO: Awake; no lateralizing signs. SKIN: No Rash PSYCH; Normal affect Vitals/I&O's: Vital Signs Temp Pulse Resp BP Pulse Ox 98.6 F 69 18 138/69 H 98 11/28/18 05:52 11/28/18 05:52 11/28/18 05:52 11/28/18 05:52 11/28/18 05:52 Oxygen Delivery Method Room Air Weight: 65.8 kg Body Mass Index (BMI) 21.9 Intake and Output for Last 24 Hours 11/26/18 11/27/18 11/28/18 23:59 23:59 23:59 Intake Total 5534.66 / 5534.66 3756.92 / 4236.92 2580 / 2580 Balance 5534.66 / 5534.66 3756.92 / 4236.92 2580 / 2580 Microbiology Past 72 Hours 11/26/18 01:24 Blood Culture (Wb) - Anticubital Right Blood Culture - Preliminary No growth in 48 hours. 11/26/18 01:14 Blood Culture (Wb) - Anticubital Right Blood Culture - Preliminary No growth in 48 hours. 11/25/18 09:10 Stool C. difficile DNA Amplification - Final Toxigenic C. difficile DNA 11/26/18 01:40 Stool Stool Lactoferrin - Final 11/26/18 01:40 Stool Stool Occult Blood (INES) - Final Occult Blood Positive Laboratory Results 11/28/18 05:34: WBC 7.5, RBC 3.30 L, Hgb 9.7 L, Hct 28.8 L, MCV 87.3, MCH 29.4, MCHC 33.7, RDW Std Deviation 39.9, RDW Coeff of Heather 12.4, Plt Count 253, MPV 9.8, Immature Gran % (Auto) 0.300, Neut % (Auto) 53.6, Lymph % (Auto) 28.0, [place] % (Auto) 9.2, Eos % (Auto) 8.1 H, Baso % (Auto) 0.8, Absolute Neuts (auto) 4.0, Absolute Lymphs (auto) 2.10, Nucleated RBC % 0 11/28/18 05:34: Sodium 141, Potassium 3.0 L, Chloride 110 H, Carbon Dioxide 23.0, Anion Gap 8, BUN 4 L, Creatinine 0.53 L, Estim Creat Clear Calc 50.91, Est GFR (MDRD) Af Amer 147, Est GFR (MDRD) Non-Af 122, BUN/Creatinine Ratio 7.6 L, Glucose 117 H, Calcium 7.9 L Current Medications Acetaminophen (Tylenol) 650 mg PO Q6H PRN PRN PRN Reason: Mild Pain (1-3)/Temp > 100.7 F Last Admin: 11/27/18 07:51 Dose: 650 mg Documented by: Famotidine (Pepcid) 20 mg PO BID [facility] Last Admin: 11/27/18 21:15 Dose: 20 mg Documented by: Hydromorphone HCl (Dilaudid Inj) 1 mg IV Q4H PRN PRN PRN Reason: Severe pain (-11/27) Last Admin: 11/28/18 05:42 Dose: 1 mg Documented by: Sodium Chloride () 1,000 mls @ 125 mls/hr IV .Q8H [facility] Last Admin: 11/28/18 05:43 Dose: 125 mls/hr Documented by: Sodium Chloride () 250 mls @ 15 mls/hr IV .[id number] PRN PRN Reason: SALINE FLUSH Last Infusion: 11/27/18 10:25 Dose: Infused Documented by: Potassium Chloride () 10 meq in 100 mls @ 100 mls/hr IV BOLUS Q1H [facility] Stop: 11/28/18 11:59 Nitroglycerin (Nitrostat) 0.4 mg SUBLINGUAL Q5M PRN PRN Reason: CARDIAC/CHEST PAIN Nutritional Formula (Lactose Free) (Ensure Enlive) 120 ml PO 4X/DAY [facility] Last Admin: 11/27/18 21:15 Dose: Not Given Documented by: Ondansetron HCl (Zofran) 4 mg IV Q6H PRN PRN PRN Reason: NAUSEA/VOMITING Last Admin: 11/28/18 05:42 Dose: 4 mg Documented by: Oxycodone HCl (Oxyir) 5 mg PO Q4H PRN PRN PRN Reason: Moderate Pain (4-6/10) Last Admin: 11/27/18 07:52 Dose: 5 mg Documented by: Sodium Chloride () 5 - 15 ml IV UD PRN PRN Reason: SALINE FLUSH Last Admin: 11/27/18 23:59 Dose: 10 ml Documented by: Vancomycin HCl () 125 mg PO Q6 [facility] Last Admin: 11/28/18 05:43 Dose: 125 mg Documented by: Medical Necessity - Tobacco Use Smoking Status: Never smoker Assessment/Plan All Active Problems Sigmoid diverticulitis (Acute) C. difficile colitis (Acute) Patient is a 68-year-old lady who was diagnosed with acute diverticulitis on 11/04/2018 presented back to the ED with worsening pain. Imaging studies obtained in the ED was compatible with diverticulitis involving the sigmoid colon. Admitted to regular nursing floor for further management 1. Acute sigmoid diverticulitis ~patient did fail outpatient treatment admitted to regular nursing floor started on Zosyn. Patient was also treated symptomatically with pain meds as well as antinausea medication. ~11/27/2018 patient was apparently treated for total of 2 weeks of p.o. antibiotics Zosyn subsequently discontinued the suspected patient findings to be secondary to C. difficile colitis management of which has been discussed as below 2. Acute C. difficile colitis again (probably present on admission prior to patient being admitted) ~was placed in enteric isolation and started on p.o. vancomycin ~11/28/2018 she still continues to experience significant diarrhea. 3. Hypokalemia ~ Due to GI losses from above. Potassium as of 11/28/2018 was 3.0 repletion initiated 4. History of lumbar fusion surgery ~18 years ago patient has since remained asymptomatic 5. DVT prophylaxis bilateral SCDs. Code Visit Inpatient E&M: 85348 Subs Hosp L2
[2018-11-28] MEDS: Potassium Chloride 10mEq/100mL 10 MEQ/100 ML IV.SOLN. 100 MEQ IV BOLUS ×4 (08:40→12:38)
[2018-11-28] MEDS: 0.9% NaCl IVPB Med Flush (250 mL) 15 ML IV (08:40)
[2018-11-28] MEDS: Famotidine 20 MG Tablet PO ×2 (08:40→21:56)
[2018-11-28 08:43] VITALS: BP 146/70; PULSE 65; RESP 16; TEMP 37; O2SAT 98
[2018-11-28] MEDS: oxyCODONE 5 MG Tablet PO ×2 (09:42→22:01)
[2018-11-28] MEDS: Acetaminophen 325 MG Tablet 650 MG PO (09:42)
[2018-11-28 11:02] VITALS: O2SAT 96
[2018-11-28 14:03] VITALS: BP 135/78; PULSE 69; RESP 18; TEMP 36.8; O2SAT 97
[2018-11-28 20:00] VITALS: BP 139/74; PULSE 70; RESP 18; TEMP 37.2; O2SAT 100
[2018-11-29] MEDS: Acetaminophen 325 MG Tablet 650 MG PO (00:30)
[2018-11-29] MEDS: HYDROmorphone 1 MG/ML Syringe IV ×3 (00:36→15:34)
[2018-11-29 02:00] VITALS: BP 148/78; PULSE 70; RESP 18; TEMP 36.5; O2SAT 96
[2018-11-29] MEDS: 0.9% Normal Saline 1,000 ML 125 ML IV ×3 (05:53→21:34)
[2018-11-29 08:04] VITALS: BP 144/79; PULSE 66; RESP 14; TEMP 36.3; O2SAT 98
[2018-11-29] MEDS: 0.9% NaCl Peripheral Flush Adult/Peds IV ×3 (08:08→18:08)
--- NOTE | 2018-11-29 08:10 | PCM.PN.HOSP ---
Patient Problems: Active and Suspected Problems Sigmoid diverticulitis (Acute) Subjective: CC follow-up acute C. difficile colitis Patient seen still continues to experience loose bowel movement. She reported having gone 7 times during the nights with according to is much improved compared to the day prior Objective: GENERAL: cooperative HEENT: Atraumatic; EYES; Anicteric, Normal Conjunctiva NECK; supple, normal thyroid, RESPIRATORY: Diminished to auscultation CARDIOVASCULAR: Regular S1 S2, GI: soft, normoactive bowel sounds, LLQ tenderness : No Renal angle tenderness; EXTREMITIES: No edema, no clubbing, MUSCULOSKELETAL: No Joint Tenderness; NEURO: Awake; no lateralizing signs. SKIN: No Rash PSYCH; Normal affect Vitals/I&O's: Vital Signs Temp Pulse Resp BP Pulse Ox 97.4 F L 66 14 144/79 H 98 11/29/18 08:04 11/29/18 08:04 11/29/18 08:04 11/29/18 08:04 11/29/18 08:04 Oxygen Delivery Method Room Air Weight: 65.8 kg Body Mass Index (BMI) 21.9 Intake and Output for Last 24 Hours 11/27/18 11/28/18 11/29/18 23:59 23:59 23:59 Intake Total 3756.92 / 4236.92 5847.75 / 6047.75 1193.75 / 1193.75 Balance 3756.92 / 4236.92 5847.75 / 6047.75 1193.75 / 1193.75 Microbiology Past 72 Hours 11/26/18 01:24 Blood Culture (Wb) - Anticubital Right Blood Culture - Preliminary No growth in 48 hours. 11/26/18 01:14 Blood Culture (Wb) - Anticubital Right Blood Culture - Preliminary No growth in 48 hours. 11/25/18 09:10 Stool C. difficile DNA Amplification - Final Toxigenic C. difficile DNA Current Medications Acetaminophen (Tylenol) 650 mg PO Q6H PRN PRN PRN Reason: Mild Pain (1-3)/Temp > 100.7 F Last Admin: 11/29/18 00:30 Dose: 650 mg Documented by: Famotidine (Pepcid) 20 mg PO BID [facility] Last Admin: 11/28/18 21:56 Dose: 20 mg Documented by: Hydromorphone HCl (Dilaudid Inj) 1 mg IV Q4H PRN PRN PRN Reason: Severe pain (7-10/10) Last Admin: 11/29/18 08:08 Dose: 1 mg Documented by: Sodium Chloride () 1,000 mls @ 125 mls/hr IV .Q8H [facility] Last Admin: 11/29/18 05:53 Dose: 125 mls/hr Documented by: Sodium Chloride () 250 mls @ 15 mls/hr IV .[id number] PRN PRN Reason: SALINE FLUSH Last Infusion: 11/28/18 13:51 Dose: 0 mls/hr Documented by: Nitroglycerin (Nitrostat) 0.4 mg SUBLINGUAL Q5M PRN PRN Reason: CARDIAC/CHEST PAIN Nutritional Formula (Lactose Free) (Ensure Enlive) 120 ml PO 4X/DAY [facility] Last Admin: 11/28/18 21:58 Dose: Not Given Documented by: Ondansetron HCl (Zofran) 4 mg IV Q6H PRN PRN PRN Reason: NAUSEA/VOMITING Last Admin: 11/28/18 13:59 Dose: 4 mg Documented by: Oxycodone HCl (Oxyir) 5 mg PO Q4H PRN PRN PRN Reason: Moderate Pain (4-6/10) Last Admin: 11/28/18 22:01 Dose: 5 mg Documented by: Sodium Chloride () 5 - 15 ml IV UD PRN PRN Reason: SALINE FLUSH Last Admin: 11/29/18 08:08 Dose: 10 ml Documented by: Vancomycin HCl () 125 mg PO Q6 [facility] Last Admin: 11/29/18 05:53 Dose: 125 mg Documented by: Medical Necessity - Tobacco Use Smoking Status: Never smoker Assessment/Plan All Active Problems C. difficile colitis (Acute) Sigmoid diverticulitis (Acute) Patient is a 68-year-old lady who was diagnosed with acute diverticulitis on 11/04/2018 presented back to the ED with worsening pain. Imaging studies obtained in the ED was compatible with diverticulitis involving the sigmoid colon. Admitted to regular nursing floor for further management 1. Acute C. difficile colitis again (probably present on admission prior to patient being admitted) ~11/27/2018 was placed in enteric isolation and started on p.o. vancomycin ~11/28/2018 she still continues to experience significant diarrhea. ~ Patient seen still continues to experience loose bowel movement. She reported having gone 7 times during the nights with according to is much improved compared to the day prior 2. Acute sigmoid diverticulitis ~patient did fail outpatient treatment admitted to regular nursing floor started on Zosyn. Patient was also treated symptomatically with pain meds as well as antinausea medication. ~11/27/2018 patient was apparently treated for total of 2 weeks of p.o. antibiotics Zosyn subsequently discontinued the suspected patient findings to be secondary to C. difficile colitis management of which has been discussed as above 3. Hypokalemia ~ Due to GI losses from above. Potassium as of 11/28/2018 was 3.0 repletion initiated 4. History of lumbar fusion surgery ~18 years ago patient has since remained asymptomatic 5. DVT prophylaxis bilateral SCDs. Code Visit Inpatient E&M: 40012 Subs Hosp L2
[2018-11-29 09:28] LABS: Absolute Neutrophil Count 3.5 X10^3/uL (2.0-7.7); Basophil# 0.06 X10^3/uL; Basophil% 0.9 % (0-1); Eosinophil# 0.51 X10^3/uL; Eosinophils% 7.9 % (0-5); Hemoglobin 10.9 g/dL (12.0-15.0); Mean Corp Hgb Conc 34.1 g/dL (32-36); Mean Corpuscular Hgb 29.8 pg (27.0-32.0); Mean Corpuscular Volume 87.4 fL (81-99); Mean Platelet Vol. 9.1 fl (6.2-12.0); Monocyte# 0.55 X10^3/uL; Monocyte% 8.6 % (0-10); NRBC Flagged by Analyzer 0 % (0-5); Neutrophil # 3.48 X10^3/uL (2.7-7.7); Neutrophil % 54.3 % (47-70); Platelet Count 283 K/mm3 (150-450); RBC Distribution Width CV 12.5 % (11.6-14.6); RBC Distribution Width SD 40.2 fl (35.1-43.9); Red Blood Count 3.66 M/mm3 (4.2-5.4); White Blood Count 6.4 K/mm3 (4.4-11.0)
[2018-11-29 09:46] LABS: Anion Gap 6 (5-15); BUN 3 mg/dL (7-18); BUN/Creat Ratio 5.8 RATIO (10-20); Calcium,Total 8.3 mg/dL (8.5-10.1); Chloride 108 mmol/L (98-107); Creatinine, Serum 0.52 mg/dL (0.55-1.02); EST Glomerular Filtration Rate 125 mL/min (>60); Est Glom Filt Rate - Afr Amer 151 mL/min (>60); Estimated Creatinine Clearance 50.91 ml/min; Glucose 81 mg/dL (74-106); Potassium 3.9 mmol/L (3.5-5.1); Sodium Level 140 mmol/L (136-145)
[2018-11-29] MEDS: Famotidine 20 MG Tablet PO ×2 (10:19→21:35)
--- NOTE | 2018-11-29 10:23 | NURSING ---
states has had 6 bms, 1 blow out the other 5 sm amts.
[2018-11-29 11:12] VITALS: O2SAT 96
[2018-11-29] MEDS: oxyCODONE 5 MG Tablet PO ×2 (12:14→21:34)
[2018-11-29 13:47] VITALS: BP 122/69; PULSE 78; PULSE 88; RESP 16; TEMP 37.1; O2SAT 95
[2018-11-29] MEDS: Hydrocortisone 25 MG Suppository RECTAL (15:35)
[2018-11-29] MEDS: Ondansetron 4 MG/2 ML Vial IV (18:09)
[2018-11-29 21:32] VITALS: BP 135/74; PULSE 72; RESP 18; TEMP 36.9; O2SAT 98
[2018-11-30] MEDS: Hydrocortisone 25 MG Suppository RECTAL ×2 (01:23→11:18)
[2018-11-30] MEDS: Acetaminophen 325 MG Tablet 650 MG PO ×2 (01:24→16:09)
[2018-11-30] MEDS: oxyCODONE 5 MG Tablet PO ×4 (01:24→21:43)
[2018-11-30 02:16] VITALS: BP 142/74; PULSE 74; RESP 16; TEMP 36.7; O2SAT 97
[2018-11-30] MEDS: 0.9% Normal Saline 1,000 ML 125 ML IV ×3 (05:19→22:16)
[2018-11-30 06:34] LABS: Anion Gap 7 (5-15); BUN 5 mg/dL (7-18); BUN/Creat Ratio 10.2 RATIO (10-20); Calcium,Total 7.9 mg/dL (8.5-10.1); Chloride 111 mmol/L (98-107); Creatinine, Serum 0.49 mg/dL (0.55-1.02); EST Glomerular Filtration Rate 133 mL/min (>60); Est Glom Filt Rate - Afr Amer 161 mL/min (>60); Estimated Creatinine Clearance 50.91 ml/min; Glucose 98 mg/dL (74-106); Potassium 3.7 mmol/L (3.5-5.1); Sodium Level 143 mmol/L (136-145)
--- NOTE | 2018-11-30 07:25 | PCM.PN.HOSP ---
Patient Problems: Active and Suspected Problems Sigmoid diverticulitis (Acute) Subjective: Follow-up acute C. difficile colitis Patient seen reports having had 10 loose bowel movement during the night. Did discuss with patient and nursing to have a receptacle placed in her toilet bowl to examine her stool prior to making decision regarding disposition Objective: GENERAL: cooperative HEENT: Atraumatic; EYES; Anicteric, Normal Conjunctiva NECK; supple, normal thyroid, RESPIRATORY: Diminished to auscultation CARDIOVASCULAR: Regular S1 S2, GI: soft, normoactive bowel sounds, LLQ tenderness : No Renal angle tenderness; EXTREMITIES: No edema, no clubbing, MUSCULOSKELETAL: No Joint Tenderness; NEURO: Awake; no lateralizing signs. SKIN: No Rash PSYCH; Normal affect Vitals/I&O's: Vital Signs Temp Pulse Resp BP Pulse Ox 98.1 F 74 16 142/74 H 97 11/30/18 02:16 11/30/18 02:16 11/30/18 02:16 11/30/18 02:16 11/30/18 02:16 Oxygen Delivery Method Room Air Weight: 65.8 kg Body Mass Index (BMI) 21.9 Intake and Output for Last 24 Hours 11/28/18 11/29/18 11/30/18 23:59 23:59 23:59 Intake Total 5847.75 / 6047.75 3591.66 / 3591.66 764.58 / 764.58 Balance 5847.75 / 6047.75 3591.66 / 3591.66 764.58 / 764.58 Microbiology Past 72 Hours 11/26/18 01:24 Blood Culture (Wb) - Anticubital Right Blood Culture - Preliminary No growth in 48 hours. 11/26/18 01:14 Blood Culture (Wb) - Anticubital Right Blood Culture - Preliminary No growth in 48 hours. Laboratory Results 11/29/18 09:13: WBC 6.4, RBC 3.66 L, Hgb 10.9 L, Hct 32.0 L, MCV 87.4, MCH 29.8, MCHC 34.1, RDW Std Deviation 40.2, RDW Coeff of Heather 12.5, Plt Count 283, MPV 9.1, Immature Gran % (Auto) 0.300, Neut % (Auto) 54.3, Lymph % (Auto) 28.0, [place] % (Auto) 8.6, Eos % (Auto) 7.9 H, Baso % (Auto) 0.9, Absolute Neuts (auto) 3.5, Absolute Lymphs (auto) 1.80, Nucleated RBC % 0 11/29/18 09:13: Sodium 140, Potassium 3.9, Chloride 108 H, Carbon Dioxide 26.0, Anion Gap 6, BUN 3 L, Creatinine 0.52 L, Estim Creat Clear Calc 50.91, Est GFR (MDRD) Af Amer 151, Est GFR (MDRD) Non-Af 125, BUN/Creatinine Ratio 5.8 L, Glucose 81, Calcium 8.3 L, Magnesium 2.0 11/30/18 05:16: Sodium 143, Potassium 3.7, Chloride 111 H, Carbon Dioxide 25.0, Anion Gap 7, BUN 5 L, Creatinine 0.49 L, Estim Creat Clear Calc 50.91, Est GFR (MDRD) Af Amer 161, Est GFR (MDRD) Non-Af 133, BUN/Creatinine Ratio 10.2, Glucose 98, Calcium 7.9 L Current Medications Acetaminophen (Tylenol) 650 mg PO Q6H PRN PRN PRN Reason: Mild Pain (1-3)/Temp > 100.7 F Last Admin: 11/30/18 01:24 Dose: 650 mg Documented by: Famotidine (Pepcid) 20 mg PO BID [facility] Last Admin: 11/29/18 21:35 Dose: 20 mg Documented by: Hydrocortisone Acetate (Anusol Hc) 25 mg RECTAL TID PRN PRN PRN Reason: Hemorrhoids Last Admin: 11/30/18 01:23 Dose: 25 mg Documented by: Hydromorphone HCl (Dilaudid Inj) 1 mg IV Q4H PRN PRN PRN Reason: Severe pain (7-10/10) Last Admin: 11/29/18 15:34 Dose: 1 mg Documented by: Sodium Chloride () 1,000 mls @ 125 mls/hr IV .Q8H [facility] Last Admin: 11/30/18 05:19 Dose: 125 mls/hr Documented by: Sodium Chloride () 250 mls @ 15 mls/hr IV .[id number] PRN PRN Reason: SALINE FLUSH Last Infusion: 11/28/18 13:51 Dose: 0 mls/hr Documented by: Nitroglycerin (Nitrostat) 0.4 mg SUBLINGUAL Q5M PRN PRN Reason: CARDIAC/CHEST PAIN Nutritional Formula (Lactose Free) (Ensure Enlive) 120 ml PO 4X/DAY [facility] Last Admin: 11/29/18 21:35 Dose: Not Given Documented by: Ondansetron HCl (Zofran) 4 mg IV Q6H PRN PRN PRN Reason: NAUSEA/VOMITING Last Admin: 11/29/18 18:09 Dose: 4 mg Documented by: Oxycodone HCl (Oxyir) 5 mg PO Q4H PRN PRN PRN Reason: Moderate Pain (4-6/10) Last Admin: 11/30/18 05:19 Dose: 5 mg Documented by: Sodium Chloride () 5 - 15 ml IV UD PRN PRN Reason: SALINE FLUSH Last Admin: 11/29/18 18:08 Dose: 10 ml Documented by: Vancomycin HCl () 125 mg PO Q6 [facility] Last Admin: 11/30/18 05:19 Dose: 125 mg Documented by: Medical Necessity - Tobacco Use Smoking Status: Never smoker Assessment/Plan All Active Problems C. difficile colitis (Acute) Sigmoid diverticulitis (Acute) Patient is a 68-year-old lady who was diagnosed with acute diverticulitis on 11/04/2018 presented back to the ED with worsening pain. Imaging studies obtained in the ED was compatible with diverticulitis involving the sigmoid colon. Admitted to regular nursing floor for further management 1. Acute C. difficile colitis again (probably present on admission prior to patient being admitted) ~11/27/2018 was placed in enteric isolation and started on p.o. vancomycin ~11/28/2018 she still continues to experience significant diarrhea. ~ Patient seen still continues to experience loose bowel movement. She reported having gone 7 times during the nights with according to is much improved compared to the day prior ?11/30/2018 patient still complains of having loose bowel movement. Seen to discharge patient deferred to the she has formed stools. Was discussed with patient and she agrees 2. Acute sigmoid diverticulitis ~patient did fail outpatient treatment admitted to regular nursing floor started on Zosyn. Patient was also treated symptomatically with pain meds as well as antinausea medication. ~11/27/2018 patient was apparently treated for total of 2 weeks of p.o. antibiotics Zosyn subsequently discontinued the suspected patient findings to be secondary to C. difficile colitis management of which has been discussed as above 3. Hypokalemia ~ Due to GI losses from above. Potassium as of 11/28/2018 was 3.0 repletion initiated 4. History of lumbar fusion surgery ~18 years ago patient has since remained asymptomatic 5. DVT prophylaxis bilateral SCDs. Code Visit Inpatient E&M: 71686 Subs Hosp L2
[2018-11-30 08:06] VITALS: BP 131/74; PULSE 62; PULSE 65; RESP 10; TEMP 36.1; O2SAT 96
[2018-11-30] MEDS: Famotidine 20 MG Tablet PO ×2 (08:19→20:58)
[2018-11-30 13:52] VITALS: BP 135/76; PULSE 72; PULSE 82; RESP 12; RESP 18; TEMP 36.9; O2SAT 95
[2018-11-30 20:53] VITALS: BP 145/84; PULSE 68; RESP 16; TEMP 36.6; O2SAT 97
[2018-11-30] MEDS: Ondansetron 4 MG/2 ML Vial IV (21:44)
[2018-12-01] MEDS: Acetaminophen 325 MG Tablet 650 MG PO ×2 (00:29→09:10)
[2018-12-01 03:25] VITALS: BP 146/85; PULSE 68; RESP 16; TEMP 36.6; O2SAT 95
[2018-12-01] MEDS: 0.9% Normal Saline 1,000 ML 125 ML IV (05:59)
[2018-12-01] MEDS: oxyCODONE 5 MG Tablet PO ×2 (05:59→11:41)
[2018-12-01] MEDS: Ondansetron 4 MG/2 ML Vial IV (06:00)
[2018-12-01 06:22] LABS: Anion Gap 7 (5-15); BUN 4 mg/dL (7-18); BUN/Creat Ratio 7.8 RATIO (10-20); Calcium,Total 8.1 mg/dL (8.5-10.1); Chloride 113 mmol/L (98-107); Creatinine, Serum 0.51 mg/dL (0.55-1.02); EST Glomerular Filtration Rate 127 mL/min (>60); Est Glom Filt Rate - Afr Amer 153 mL/min (>60); Estimated Creatinine Clearance 50.91 ml/min; Glucose 92 mg/dL (74-106); Potassium 3.5 mmol/L (3.5-5.1); Sodium Level 145 mmol/L (136-145)
[2018-12-01 09:00] VITALS: BP 160/90; PULSE 65; RESP 16; TEMP 37; O2SAT 95
[2018-12-01] MEDS: Famotidine 20 MG Tablet PO (09:10)
--- NOTE | 2018-12-01 09:28 | PCM.DC ---
- Discharge Diagnoses Current Active Problems: Current Active and Chronic Problems Sigmoid diverticulitis (Acute) You will use the following diet at home:: No restrictions - bland, advance as tolerated Your food should be the consistency of: Regular Your liquids should be the consistency of: Regular/Thin Discharge Activity: - - advance activity as tolerated Call your doctor if you observe: Fever of 101 or Higher, - - worsening abdominal pain. worsening diarrhea. persistent diarrhea after completing antibiotics. Allergies/Adverse Reactions: Allergies No Known Allergies Allergy (Verified 11/25/18 19:07) Medications to take at Discharge Acetaminophen [Tylenol Tablet] 650 mg PO Q6H PRN PRN tablet 12/01/18 L. Acidophilus/L. Rhamnosus [Probiotic 15 Billion Cell Cap] 1 ea PO TIDCM #21 cap 12/01/18 Ondansetron [Ondansetron Odt] 8 mg PO TID PRN #20 tab.rapdis 12/01/18 Vancomcyin 125mg/5mL PO Liquid 125 mg PO Q6 #28 po.syringe 12/01/18 The following prescriptions were given: Ondansetron [Ondansetron Odt] 8 mg PO TID PRN #20 tab.rapdis PRN Reason: Nausea/Vomiting Transmission Status: Pending to [facility] L. Acidophilus/L. Rhamnosus [Probiotic 15 Billion Cell Cap] 1 ea PO TIDCM #21 cap Transmission Status: Pending to [facility] [facility] Vancomcyin 125mg/5mL PO Liquid 125 mg PO Q6 #28 po.syringe Transmission Status: Pending to [facility] [facility] Primary Care Physician: Brayden Alberto MD [Primary Care Provider] - Within 1 Week Test Results: Test results from this visit will be discussed in further detail at your follow-up appointment, if applicable. Proposed Discharge Date: 12/01/18
--- NOTE | 2018-12-01 09:30 | DS.PCM_ITS ---
Discharge Date and Diagnosis - Problem List Patient Problems: Active and Suspected Problems C. difficile colitis (Acute) Date of Admission: 11/25/18 Date of Discharge: 12/01/18 - Primary Discharge Diagnosis Active and Suspected Problems Sigmoid diverticulitis (Acute) Hospital Course and Treatment Imaging Results: Clinical Impression(s) from Imaging Studies Abdomen/Pelvis CT 11/25/18 19:38 IMPRESSION: 1. Colonic diverticulosis most severely affecting the sigmoid. There is mild perisigmoidal fatty stranding compatible with diverticulitis. There is no evidence of associated extraluminal gas or abnormal fluid collection in the region. 2. Left renal parapelvic cysts. 3. Small hiatal hernia. 4. Small fat-containing umbilical hernia. Electronically Signed: George Gonzalez MD at 22:28 EDT , Service support , Operations: None Procedures: None Summary of Care Provided: The patient is a 68 year old F with 2-week history of abdominal pain. Patient was seen in the emergency room on the and was discharged with a ciprofloxacin and metronidazole, but the abdominal pain got worse. CAT scan showed diverticulitis here and patient was started on Pipracil and/tazobactam. Stool culture came back positive for C. difficile and her antibiotics were then changed over to oral vancomycin. Patient gradually improved over the next several days at the point where her stools are less watery, less frequent and smaller amounts. Stool is just soft and small at this point time. Patient still has some abdominal pain but overall doing better. Plan is for the patient to complete a 7 more days of oral vancomycin. Patient is already received 5 days worth. Patient instructed to return if diarrhea gets worse or remains persistent and abdominal pain gets worse. Patient was offered oxycodone for abdominal pain, however she declined. Patient will be instructed to take acetaminophen. Patient also be prescribed a probiotic the patient was advised that may not help her but told her it is low risk of medication. As to the cause of the C. difficile, it could be related with antibiotics that she was taking for her diverticulitis or it may have been the fact that she had C. difficile from the get go. It is unclear at this time. [] Patient Problems: Active and Suspected Problems C. difficile colitis (Acute) - Physical Exam General: Alert, No apparent distress HEENT: Atraumatic, Normocephalic Oral: Moist Mucosa, No Gingival or Mucosal Lesions/ Ulcerations Neck: No Nodes, Thyroid Normal Size and Texture Lungs: Clear to auscultation, Normal air movement, No rhonchi, No wheeze, No rales Cardiovascular: Regular rate, Regular Rhythm, Normal S1, Normal S2, No murmurs Abdomen: Bowel Sounds Present, Soft, Tender - Diffusely Psych/Mental Status: Normal Affect, Appropriate Vital Signs Temp Pulse Resp BP Pulse Ox 37.0 C 65 16 160/90 H 95 12/01/18 09:00 12/01/18 09:00 12/01/18 09:00 12/01/18 09:00 12/01/18 09:00 Oxygen Delivery Method Room Air Weight: 65.8 kg Body Mass Index (BMI) 21.9 Intake and Output for Last 24 Hours 11/29/18 11/30/18 12/01/18 23:59 23:59 23:59 Intake Total 3591.66 / 3591.66 2764.58 / 4764.58 3744.58 / 3744.58 Output Total 800 / 805 5 / 5 Balance 3591.66 / 3591.66 1964.58 / 3959.58 3739.58 / 3739.58 Microbiology Past 72 Hours 11/26/18 01:24 Blood Culture - Final Blood Culture (Wb) - Anticubital Right No growth in 5 days. 11/26/18 01:14 Blood Culture - Final Blood Culture (Wb) - Anticubital Right No growth in 5 days. Laboratory Tests Past 24 Hrs 12/01/18 05:12 Sodium 145 Potassium 3.5 Chloride 113 H Carbon Dioxide 25.0 Anion Gap 7 BUN 4 L Creatinine 0.51 L Estim Creat Clear Calc 50.91 Est GFR (MDRD) Af Amer 153 Est GFR (MDRD) Non-Af 127 BUN/Creatinine Ratio 7.8 L Glucose 92 Calcium 8.1 L Discharge Diet: No Restrictions Discharge Activity: - - advance activity as tolerated Call your doctor if you observe: Fever of 101 or Higher, - - worsening abdominal pain. worsening diarrhea. persistent diarrhea after completing antibiotics. Home Medications: Medications to take at Discharge Acetaminophen [Tylenol Tablet] 650 mg PO Q6H PRN PRN tablet 12/01/18 L. Acidophilus/L. Rhamnosus [Probiotic 15 Billion Cell Cap] 1 ea PO TIDCM #21 cap 12/01/18 Ondansetron [Ondansetron Odt] 8 mg PO TID PRN #20 tab.rapdis 12/01/18 Vancomcyin 125mg/5mL PO Liquid 125 mg PO Q6 #28 po.syringe 12/01/18 Following Prescrptions Were Given to Patient: Ondansetron [Ondansetron Odt] 8 mg PO TID PRN #20 tab.rapdis PRN Reason: Nausea/Vomiting Transmission Status: Pending to [facility] L. Acidophilus/L. Rhamnosus [Probiotic 15 Billion Cell Cap] 1 ea PO TIDCM #21 cap Transmission Status: Pending to [facility] [facility] Vancomcyin 125mg/5mL PO Liquid 125 mg PO Q6 #28 po.syringe Transmission Status: Pending to [facility] Primary Care Physician: Brayden Alberto MD [Primary Care Provider] - Within 1 Week Disposition: Home Minutes spent on discharge:: 32 Patient Condition:: Good Medical Necessity - Tobacco Use Smoking Status: Never smoker Meaningful Use Info Meaningful Use Diagnoses (Choose all that apply): None applicable Code Visit Inpatient E&M: 54758 Disch Hosp
== END 2018-12-01 12:46 | disposition home or self-care (01) | DRG 372 ==
LOC: ED 19:43 → MS3 11-26 00:06
PROVIDERS: Internal Medicine; Admitting Provider Internal Medicine; Emergency Provider Emergency Medicine; Family Provider Family Medicine; PCP Family Medicine; Referring Provider Internal Medicine
DX: A04.72 Enterocolitis due to Clostridium difficile, not specified as recurrent (principal); K57.32 Diverticulitis of large intestine without perforation or abscess without bleeding; Z68.21 Body mass index [BMI] 21.0-21.9, adult; E87.6 Hypokalemia; Z98.1 Arthrodesis status
CPT/HCPCS: 36415; 74177; 80048; 80076; 81001; 82274; 83605; 83630; 83690; 83735; 85025; 87040; 87493; 97802; 99284; J7030; J7050; Q9967; A4216; J2405

== ENCOUNTER → 2019-04-23 | Outpatient (CLI) | payer MEDICARE, OTHER, SELFPAY ==
[2018-11-26 00:28] VITALS: BMI 21.9
== END | disposition home or self-care (01) ==
LOC: LABSPEC 14:21
PROVIDERS: PCP Family Medicine; Referring Provider Internal Medicine Gastroenterology; Visit Provider Internal Medicine Gastroenterology
DX: R19.7 Diarrhea, unspecified (principal); Z86.19 Personal history of other infectious and parasitic diseases
CPT/HCPCS: 87493

== ENCOUNTER 2020-09-14 09:58 | Emergency (ER) | payer MEDICARE, OTHER, SELFPAY ==
[2020-01-29 15:27] VITALS: BMI 22.1
[2020-09-14 09:58] VITALS: BP 120/72; PULSE 85; RESP 18; TEMP 36.4; O2SAT 100; BMI 22.6
--- NOTE | 2020-09-14 10:09 | ED.VIS.CHEST ---
HPI History of Present Illness Chief Complaint: Chest Other Detail of Chief Complaint: Right lower rib cage pain Informant: patient Onset/Context/Timing Onset: Days Activity at onset: gradual Timing: Continuous Quality: Positive for Aching Current Severity: Mild Maximum Severity: Mild Associated Symptoms: Negative for Nausea, Vomiting, Diaphoresis, Dyspnea, Cough, Fever, Lightheadedness, Acid Reflux and Palpitations Narrative Narrative: 69-year-old female history of colitis and prior C. difficile. Has had a prior lumbar fusion. States on Saturday she started having right lower lateral rib cage pain. Denies any fall injury or trauma. Denies any type of injury she can think of. Says is worse with movement. She denies shortness of breath. No hemoptysis. This is nonexertional pain. She denies any fever or cough. She denies any abdominal pain. She denies any change with eating. Prior Similar Symptoms: No Recent Illness/Hospitalization: No CVD Risk Factors: Negative for Hypertension, Diabetes and Hypercholesterolemia PE Risk Factors: Negative for Recent Travel/Surgery, Recent Immobilization, Prior DVT or PE, Cancer and OCP + Smoking + >/=35 TAD Risk Factors: Negative for Marfan's Syndrome and Hypertension PFSH PFSH Home Medications L. acidophilus-L. rhamnosus 1 ea PO TIDCM #21 cap 12/01/18 [Rx Last Taken Unknown] Allergy/AdvReac Type Severity Reaction Status Date / Time No Known Allergies Allergy Verified 01/29/20 15:29 Social History Smoking Status: Never smoker ROS ROS ED Review of Systems ROS Unobtainable: Denies due to encephalopathy Constitutional Constitutional ED: Denies chills or fever(s) Eyes Eyes: Denies none ENT ENT ED: Denies ear pain or sore throat Cardiovascular Cardiovascular: Reports as per HPI; Denies palpitations or racing heartbeat Respiratory/Chest Respiratory/Chest: Denies cough or dyspnea Gastrointestinal Gastrointestinal: Denies abdominal pain, constipation, diarrhea, nausea or vomiting Genitourinary Genitourinary ED: Denies dysuria or hematuria Musculoskeletal Musculoskeletal: Denies arthralgias or myalgias Integumentary Denies abscess or rash Neurologic Neurologic: Denies headache(s) or weakness Psychiatric Psychiatric: Denies anxiety or depression Endocrine Endocrinology: Denies polydipsia or polyuria Hematologic/Lymphatic Hematologic/Lymphatic: Denies easy bruising Allergic/Immunologic Allergic/Immunologic ED: Denies mouth swelling or urticaria EXAM Physical Exam Narrative Exam Narrative: Well-appearing 69-year-old female no acute distress. Vital signs stable afebrile pulse ox 9% on room air no signs hypoxia. HEENT exam unremarkable. Neck nontender. No lymphadenopathy. No JVD. Lungs clear to auscultation bilaterally. Chest wall nontender except right lower and lateral rib cage has mild tenderness. There is no ecchymosis or bruising. No subcu air crepitance. Abdomen is completely soft nontender normal bowel sounds no peritoneal signs. There is no right upper quadrant abdominal pain. Back is nontender. Extremities moves all 4. Calves are nontender without edema or cords. Neurologically she is awake and alert with no focal motor deficits. Const Vital Signs: 09/14/20 09:58 Temperature 97.6 F L Temperature Source Temporal Pulse Rate 85 Respiratory Rate 18 Blood Pressure 120/72 Blood Pressure Mean 88 Pulse Ox 100 Oxygen Delivery Method Room Air Positive well nourished and well developed; Negative for obese, cachectic, contractures or unkempt General Appearance ED: well developed and NAD; Negative for unkempt, cachectic or contractures Nutritional Appearance: Negative for cachectic or obese HEENT Reports moist mucous membranes normocephalic and atraumatic; Negative for trauma or tenderness Eyes PERRL and EOMs intact bilaterally Neck no lymphadenopathy, supple and no JVD General: Negative for tenderness Chest Wall inspection of chest normal Chest Narrative: Tender right lower rib cage. Resp normal respiratory effort and clear to auscultation bilaterally Effort and Inspection: Negative for respiratory distress Cardio regular rate, regular rhythm, S1 normal heart sound, S2 normal heart sound and no murmurs Rate: Negative for bradycardia or tachycardic GI normal to inspection, nondistended, normoactive bowel sounds, soft to palpation, non-tender, non-distended and no masses; Negative for hepatosplenomegaly Auscultation: Negative for hyperactive bowel sounds Palpation: Negative for splenomegaly or mass Back/Spine no CVA tenderness and no thoracic nor lumbar tenderness General Back: Negative for CVA tenderness Extremity normal to inspection General Extremety ED: Negative for edema, pulses abnormal or tenderness General Extremity: Negative for edema or pulses abnormal Neuro oriented x3 and CN's II-XII intact bilaterally Sensorium / Orientation: awake, alert, oriented to person, oriented to place and oriented to time Motor Exam: strength 5/5 throughout Psych mental status grossly normal Appearance: Negative for unkempt Skin no rashes or lesions noted and no wounds MDM MDM MDM Narrative Medical decision making narrative: 69-year-old female with reproducible right lower rib cage pain. Appears to be musculoskeletal. No risk of DVT or PE. No hemoptysis. No shortness of breath. No abdominal pain. No food intolerance. No pain on abdominal exam. Chest x-ray being obtained. Repeat exam at 11:20 AM no change. Reproducible pain. Discussed with patient. 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 I suspect she strained her right chest wall. She will use ice. Pillow for support. No Motrin for pain. Follow-up if not improving. Return if worse. Radiography Chest X-Ray - ED: 1 View, Read by ED Physician, Heart, Lungs, Mediastinum, Bony Structures, No Acute Disease and Chronic Changes Diagnostic Testing: Radiology Impression Chest X-Ray 09/14/20 10:30 IMPRESSION: Hyperinflation. The lungs are clear. Electronically Signed: Roger Evans MD at 10:51 EDT , Service support , Discharge Plan Triage Chief Complaint: Chest Other ED Provider: Alan Fields Dx/Rx/DC Orders Clinical Impression: Chest wall muscle strain Instructions: ED Strain Chest Wall Prescriptions: No Action L. acidophilus-L. rhamnosus 1 EACH capsule 1 ea PO TIDCM Qty: 21 RF: 0 Primary Care Provider: Brayden Alberto Referrals: Brayedn Alberto MD [Primary Care Provider] - 1 Week if not improving Activity Restrictions/Additional Instructions: Use a pillow to support your chest wall to decrease the pain. Motrin for pain and inflammation Tylenol for pain. Ice to your chest wall. Follow-up with your doctor if not improving. Return to the emergency department if worsening pain, fever, shortness of breath, abdominal pain or coughing up blood. Disposition Disposition: Home, Self Care
--- NOTE | 2020-09-14 10:30 | RAD_ITS ---
STUDY: X-RAY CHEST REASON FOR EXAM: Female, 69 years old. Atraumatic right lower rib pain TECHNIQUE: PA and lateral views of the chest. COMPARISON: None. FINDINGS: Hyperinflation. The lungs are clear. There is no demonstrated pleural abnormality. Normal size heart. Normal mediastinum and jalil. Normal visualized pulmonary arteries. There is atherosclerotic calcification of the aortic arch with tortuosity. There is demineralization of the osseous structures. Normal visualized ribs, clavicles, and shoulders. There is no demonstrated abnormality of the visualized soft tissue structures of the upper abdomen. RAD/Chest PA and Lateral IMPRESSION: Hyperinflation. The lungs are clear. Electronically Signed: Roger Evans MD at 10:51 EDT , Service support ,
[2020-09-14] MEDS: Ibuprofen 600 MG Tablet PO (11:38)
== END 2020-09-14 11:39 | disposition home or self-care (01) ==
PROVIDERS: Emergency Provider Emergency Medicine; PCP Family Medicine
DX: S29.011A Strain of muscle and tendon of front wall of thorax, initial encounter (principal); X58.XXXA Exposure to other specified factors, initial encounter; Y93.89 Activity, other specified; Y92.89 Other specified places as the place of occurrence of the external cause; Y99.8 Other external cause status
CPT/HCPCS: 71046; 99283

== ENCOUNTER 2021-01-17 10:09 | Emergency (ER) | payer MEDICARE, OTHER, SELFPAY ==
[2021-01-17 10:10] VITALS: BP 133/81; PULSE 85; RESP 16; TEMP 36; O2SAT 99; BMI 21.6
[2021-01-17] MEDS: Acetaminophen 500 MG Tablet 1000 MG PO (11:49)
--- NOTE | 2021-01-17 11:50 | RAD_ITS ---
STUDY: X-RAY CHEST REASON FOR EXAM: Female, 70 years old. cough TECHNIQUE: AP COMPARISON: 09/14/2020 FINDINGS: Mildly coarsened interstitial lung markings. No organizing pneumonia. There is no demonstrated pleural abnormality. Normal size heart. Normal mediastinum and jalil. Normal visualized pulmonary arteries. There is atherosclerotic calcification of the aortic arch with tortuosity. Normal visualized thoracic spine. Normal visualized ribs, clavicles, and shoulders. There is no demonstrated abnormality of the visualized soft tissue structures of the upper abdomen. RAD/Chest 1 View (Portable) IMPRESSION: No airspace consolidation. Electronically Signed: Mtati Dubose MD ([place]) at 12:02 EST , Service support ,
--- NOTE | 2021-01-17 11:50 | EDS_ITS ---
HPI History of Present Illness Chief Complaint: Shortness of Breath Informant: patient Onset/Context/Timing Onset: Today Context: gradual Timing: Continuous Worsened by: Coughing and - (Talking) Relieved by: Nothing Associated Symptoms cough, fever, sore throat, subjective and chills; Negative for rhinorrhea, ear pain, sweats, clear sputum, white sputum, yellow sputum or green sputum Narrative Narrative: Patient presents with cough for the past week. Patient states she tested positive for COVID-19 1 week ago. Patient states her cough has been constant. Patient states she has not been coughing up any sputum. Patient admits to subjective fevers and chills. Patient also admits to a sore throat. Patient admits to some heaviness in her chest. Patient states her breathing is worse with any coughing or talking. PFSH PFSH Medical History no medical history no medical history Home Medications L. acidophilus-L. rhamnosus 1 ea PO TIDCM #21 cap 12/01/18 [Rx Last Taken Unknown] Allergy/AdvReac Type Severity Reaction Status Date / Time No Known Allergies Allergy Verified 01/17/21 10:13 Surgical History no surgical history no surgical history Social History Smoking Status: Never smoker ROS ROS ED Constitutional Constitutional ED: Reports chills and fever(s) Eyes Eyes: Denies blurry vision or change in vision ENT ENT ED: Reports sore throat; Denies rhinorrhea Cardiovascular Cardiovascular: Reports chest pain; Denies palpitations Respiratory/Chest Respiratory/Chest: Reports cough and dyspnea Gastrointestinal Gastrointestinal: Denies nausea or vomiting Genitourinary Genitourinary ED: Denies dysuria or hematuria Musculoskeletal Musculoskeletal: Denies back pain or neck pain Integumentary Denies abscess or rash Neurologic Neurologic: Reports headache(s); Denies weakness Allergic/Immunologic Allergic/Immunologic ED: Denies mouth swelling or urticaria EXAM Physical Exam Const Vital Signs: 01/17/21 10:10 01/17/21 11:52 01/17/21 13:07 Temperature 96.8 F L Temperature Source Temporal Pulse Rate 85 107 H Respiratory Rate 16 18 Respiratory Effort Short of Breath Respiratory Depth Normal Respiratory Pattern Normal Blood Pressure 133/81 H 130/75 H Blood Pressure Mean 98 93 Pulse Ox 99 96 Oxygen Delivery Method Room Air Room Air Room Air Positive well nourished and well developed General Appearance ED: well developed HEENT Reports moist mucous membranes Neck supple and no JVD Resp normal respiratory effort and clear to auscultation bilaterally Cardio regular rate, regular rhythm and no murmurs GI normal to inspection, nondistended, normoactive bowel sounds, non-tender and non-distended Auscultation: normoactive bowel sounds Palpation: soft Extremity normal to inspection General Extremety ED: Negative for edema or tenderness General Extremity: Negative for edema Neuro oriented x3, CN's II-XII intact bilaterally and no sensory deficits noted Sensorium / Orientation: alert Motor Exam: strength 5/5 throughout Psych mental status grossly normal Skin no rashes or lesions noted MDM MDM MDM Narrative Medical decision making narrative: Patient was given 6 puffs of an albuterol aerosol. Patient was given a gram of Tylenol. Portable 1 view chest x-ray was obtained. On my interpretation, lung coats are clear. There is normal cardiac silhouette. Bony thorax is normal. There is no acute process noted. Radiologist also interpreted the x-ray and agrees. Patient is feeling better on reevaluation. Patient was instructed to continue the inhaler as needed for the cough. Patient was instructed to also use Mucinex DM as needed for cough. Patient was instructed to follow-up with her primary care physician in 3 to 5 da ys. Patient understood and was agreeable with the plan. All questions were answered. Radiography Chest X-Ray - ED: 1 View, Read by ED Physician, Read by Radiologist and Normal Diagnostic Testing: Clinical Impression(s) from Imaging Studies Chest X-Ray 01/17/21 11:50 IMPRESSION: No airspace consolidation. Electronically Signed: Matti Dubose MD ([place]) at 12:02 EST , Service support , Discharge Plan Triage Chief Complaint: Shortness of Breath ED Provider: Loki Centeno Dx/Rx/DC Orders Clinical Impression: COVID-19 Instructions: Coronavirus Disease 2019 (COVID-19): Overview Prescriptions: No Action L. acidophilus-L. rhamnosus 1 EACH capsule 1 ea PO TIDCM Qty: 21 RF: 0 Primary Care Provider: Brayden Alberto Referrals: Brayden Alberto MD [Primary Care Provider] - 3-5 Days Disposition Disposition: Home, Self Care
[2021-01-17 11:52] VITALS: O2SAT 97
[2021-01-17 13:07] VITALS: BP 130/75; PULSE 107; RESP 18; O2SAT 96
[2021-01-17 13:52] VITALS: BP 130/75; PULSE 92; RESP 18; O2SAT 96
== END 2021-01-17 13:53 | disposition home or self-care (01) ==
PROVIDERS: Emergency Provider Emergency Medicine; PCP Family Medicine
DX: U07.1 COVID-19 (principal)
CPT/HCPCS: 71045; 99282

== ENCOUNTER 2021-08-23 22:14 | Emergency (ER) | payer MEDICARE, OTHER, SELFPAY ==
[2021-08-23 22:14] VITALS: BP 124/93; PULSE 93; RESP 16; TEMP 38.9; O2SAT 98; BMI 21.1
[2021-08-23 22:17] VITALS: BP 124/93; PULSE 93; RESP 16; TEMP 38.9; O2SAT 98
[2021-08-23 22:45] VITALS: TEMP 38.4
--- NOTE | 2021-08-23 23:02 | US_ITS ---
STUDY: ABDOMINAL ULTRASOUND - RIGHT UPPER QUADRANT REASON FOR VISIT: Female, 70 years old pain, n/v TECHNIQUE: Ultrasound evaluation of the right upper quadrant was performed with real-time and static santiago-scale imaging. TECHNICAL QUALITY: Adequate. COMPARISON: CT of 11/25/2018. FINDINGS: Liver: The liver measures 16.3 cm. There is normal echogenicity of the liver. The bile ducts are within normal limits. There is hepatic color flow. The direction of portal flow is hepatopetal. There is no demonstrated mass lesion. Hepatic veins are patent. Gallbladder: Normal size gallbladder. The gallbladder wall measures 1.8 mm. There is a negative sonographic [place]''s sign. There is no pericholecystic fluid. There are no gallstones. 4 mm nonshadowing gallbladder polyp incidentally noted. Common Bile Duct (C.B.D.): The common bile duct measures 3.4 mm. Pancreas: Normal size of the head, body and tail of the pancreas. There is normal echogenicity of the pancreas. There is no demonstrated pancreatic mass or cyst. Main pancreatic duct is normal in caliber measuring 1.8 mm in diameter. Right Kidney: Normal size of the right kidney. The right kidney measures 13.6 cm. Normal renal cortex. There is no demonstrated solid renal mass. There is no definite right hydronephrosis. 15 mm simple cyst noted within the lower pole parapelvic fat, and this cyst was noted on the prior CT. US/Gallbladder IMPRESSION: No acute abnormality. No gallstones or biliary ductal dilatation. Electronically Signed: Albert Bailon MD at 0:17 EDT ,
--- NOTE | 2021-08-23 23:04 | EX.ED.DYSGE1 ---
HPI History of Present Illness Chief Complaint: Fever Informant: patient Onset/Context/Timing Onset: Days (5) Context: Gradual Onset Timing: Continuous Current Severity: Severe Maximum Severity: Severe Worsened by: Deep breaths Relieved by: nothing Associated Symptoms Associated Symptoms: see below Associated Symptoms ED: cough Narrative Narrative: Patient 5 days of fevers, malaise, headaches, right flank pain, nausea and vomiting, and myalgias/arthralgias. Pain goes into her right low back, when she takes a deep breath it is worse throughout her right flank, radiating up her back when she does that. She denies any urinary symptoms throughout all of this. She has had anorexia and not eating much, but when she has eaten she denies making the pain worse. She did a COVID test at home that was negative. She has no past medical problems other than a history of diverticulitis and she had COVID in the past, she takes no daily medications. No known sick contacts or travel out of the area. [facility] Medical History (Updated 08/24/21 @ 01:[address] Gordon Stephenson MD) Sigmoid diverticulitis Home Medications Lactobacillus acidophilus and rhamnosus 15 billion cell capsule 1 ea PO TIDCM #21 caps 12/01/18 [Rx Last Taken Unknown] ciprofloxacin HCl 500 mg tablet 500 mg PO BID #14 TABLETS 08/24/21 [Rx Last Taken Unknown] hydrocodone-acetaminophen 5-325mg 5mg-325mg 1 tab PO Q6H PRN PRN Pain 3 days #10 TABLETS 08/24/21 [Rx Last Taken Unknown] ondansetron 4 mg disintegrating tablet 8 mg PO Q8H PRN PRN Nausea #20 tabs 08/24/21 [Rx Last Taken Unknown] Allergy/AdvReac Type Severity Reaction Status Date / Time No Known Allergies Allergy Verified 08/23/21 22:44 Social History Smoking Status: Never smoker ROS ROS ED Constitutional Constitutional ED: Reports body ache(s), chills, fatigue, fever(s), headache(s) and malaise Eyes Eyes: Denies blurry vision, change in vision or diplopia ENT ENT ED: Denies ear pain, hoarseness, loss taste/smell, nasal congestion, neck pain, rhinorrhea, sore throat, tinnitus or tongue swelling Cardiovascular Cardiovascular: Denies chest pain or palpitations Respiratory/Chest Respiratory/Chest: Reports cough, dyspnea on exertion and other Details: Cough is rare and nonproductive when she has it ; Denies sputum Gastrointestinal Gastrointestinal: Reports as per HPI, abdominal pain, anorexia, nausea and vomiting; Denies diarrhea, hematemesis, hematochezia or melena Genitourinary Genitourinary ED: Reports flank pain; Denies dysuria, hematuria or urinary frequency Musculoskeletal Musculoskeletal: Reports arthralgias, back pain and myalgias; Denies neck pain Integumentary Denies abscess or rash Neurologic Neurologic: Reports headache(s); Denies paresthesias or weakness Psychiatric Psychiatric: Denies anxiety or suicidal thoughts EXAM Physical Exam Const Vital Signs: 08/23/21 22:14 08/23/21 22:17 08/23/21 22:43 Temperature 102.0 F H 102.0 F H Temperature Source Temporal Temporal Pulse Rate 93 93 Respiratory Rate 16 16 Respiratory Effort Normal Non-Labored Respiratory Pattern Normal Blood Pressure 124/93 H 124/93 H Blood Pressure Mean 103 Pulse Ox 98 98 Oxygen Delivery Method Room Air Room Air 08/23/21 22:45 08/24/21 00:14 08/24/21 00:17 Temperature 101.1 F H 101 F H Temperature Source Oral Oral Pulse Rate 89 89 Respiratory Rate 16 16 Respiratory Effort Respiratory Pattern Blood Pressure 128/58 H 128/58 H Blood Pressure Mean 81 Pulse Ox 93 93 Oxygen Delivery Method Room Air Room Air Positive well nourished and well developed Constitutional Narrative: Well-appearing, no distress General Appearance ED: well developed and NAD HEENT Reports moist mucous membranes normocephalic and atraumatic Eyes PERRL and EOMs intact bilaterally Neck full ROM, no lymphadenopathy and supple Chest Wall inspection of chest normal Resp normal respiratory effort and clear to auscultation bilaterally Cardio regular rate, regular rhythm and no murmurs Rate: Negative for tachycardic GI non-distended GI Narrative: Tender right upper quadrant without guarding or rebound tenderness. Positive [place]'s. Otherwise abdomen benign. Auscultation: normoactive bowel sounds Palpation: soft Back/Spine General Back: CVA tenderness right (Very tender. Left nontender.) and other FROM Extremity normal to inspection and no calf tenderness Extremity Narrative: No objective signs of arthritis with any swelling or erythema or excessive warmth of any joints. Able to move arms and legs without apparent difficulty. General Extremety ED: Negative for edema, pulses abnormal or tenderness General Extremity: Negative for edema or pulses abnormal Neuro oriented x3, CN's II-XII intact bilaterally and no sensory deficits noted Sensorium / Orientation: awake and alert Motor Exam: strength 5/5 throughout Psych mental status grossly normal Skin no rashes or lesions noted and no wounds MDM MDM MDM Narrative Medical decision making narrative: Septic work-up obtained since patient has a temperature of 102, I did repeat COVID and influenza, and I obtained a CT of the abdomen/pelvis given that pyelonephritis is in the differential, but since ultrasound is only here for another 30 minutes after I saw the patient, I ordered an ultrasound of the gallbladder as well. 1 view chest x-ray my interpretation is negative/normal, radiology in agreement. Ultrasound of the gallbladder negative. CT of the abdomen/pelvis, there was delay in the interpretation but it eventually came back in agreement with the rest of her work-up, showing signs consistent with pyelonephritis. Her exam is consistent with that, her urine showing infection, so I treated her with IV Rocephin after we sent blood and urine cultures, her lactate is normal, she has a mild leukocytosis, and her potassium which is low was treated as well. After giving her analgesics and Zofran with IV fluids, she is feeling much better and did not require repeat treatment. I offered admission she felt good going home. I think this is fine. Clinically not septic although she does meet criteria on some level, she is doing well with normal vital signs. If she still has a temperature after the Toradol we will give her Tylenol prior to discharge, we will put her on Cipro, [place], Zofran. She has an appointment later today, I recommend calling to see if she can change it to Saturday as she may have culture results then to go over and it would be more worth a follow-up appointment. We discussed reasons to return she is comfortable with that plan. Lab Data Attestation: I reviewed the patient's lab results. Labs: Laboratory Results - last 24 hr 08/23/21 08/23/21 08/23/21 22:46 22:46 22:46 WBC 11.5 H RBC 3.75 L Hgb 11.2 L Hct 31.7 L MCV 84.5 MCH 29.9 MCHC 35.3 RDW Std Deviation 37.4 RDW Coeff of [place] 12.3 Plt Count 306 MPV 10.0 Immature Gran % (Auto) 2.300 H Neut % (Auto) 72.3 H Lymph % (Auto) 15.4 L [place] % (Auto) 9.1 Eos % (Auto) 0.3 Baso % (Auto) 0.6 Absolute Neuts (auto) 8.3 H Absolute Lymphs (auto) 1.76 Nucleated RBC % 0 Sodium 136 Potassium 3.0 L Chloride 102 Carbon Dioxide 23.0 Anion Gap 11 BUN 8 Creatinine 0.75 Estim Creat Clear Calc 49.16 Est GFR (MDRD) Af Amer 97 Est GFR (MDRD) Non-Af 80 BUN/Creatinine Ratio 10.6 Glucose 108 H Lactic Acid 1.2 Calcium 8.7 Total Bilirubin 0.50 AST 45 H ALT 78 H Alkaline Phosphatase 185 H Total Protein 7.0 Albumin 2.8 L Globulin 4.2 Albumin/Globulin Ratio 0.7 L Lipase 63 L Urine Color Urine Clarity Urine pH Ur Specific [place] Urine Protein Urine Glucose (UA) Urine Ketones Urine Occult Blood Urine Nitrite Urine Bilirubin Urine Urobilinogen Ur Leukocyte Esterase Urine RBC Urine WBC Ur Squamous Epith Cells Amorphous Sediment Urine Bacteria Urine Mucus 08/23/21 22:49 WBC RBC Hgb Hct MCV MCH MCHC RDW Std Deviation RDW Coeff of [place] Plt Count MPV Immature Gran % (Auto) Neut % (Auto) Lymph % (Auto) [place] % (Auto) Eos % (Auto) Baso % (Auto) Absolute Neuts (auto) Absolute Lymphs (auto) Nucleated RBC % Sodium Potassium Chloride Carbon Dioxide Anion Gap BUN Creatinine Estim Creat Clear Calc Est GFR (MDRD) Af Amer Est GFR (MDRD) Non-Af BUN/Creatinine Ratio Glucose Lactic Acid Calcium Total Bilirubin AST ALT Alkaline Phosphatase Total Protein Albumin Globulin Albumin/Globulin Ratio Lipase Urine Color Yellow Urine Clarity Clear Urine pH 7.0 Ur Specific [place] 1.010 Urine Protein 30 H Urine Glucose (UA) Normal Urine Ketones Negative Urine Occult Blood 10 H Urine Nitrite Negative Urine Bilirubin Negative Urine Urobilinogen 1 H Ur Leukocyte Esterase 100 H Urine RBC 0-5 SEEN Urine WBC 10-25 SEEN Ur Squamous Epith Cells 0 SEEN Amorphous Sediment 1+ Urine Bacteria 1+ Urine Mucus 0 SEEN Radiography Diagnostic Testing: Clinical Impression(s) from Imaging Studies Gallbladder Ultrasound 08/23/21 23:02 IMPRESSION: No acute abnormality. No gallstones or biliary ductal dilatation. Electronically Signed: Albert Bailon MD at 0:17 EDT , Chest X-Ray 08/23/21 23:07 IMPRESSION: Stable chest. Electronically Signed: Judith Pacheco MD at 0:14 EDT , Abdomen/Pelvis CT 08/24/21 00:00 IMPRESSION: 1. No masses bowel obstruction abscess free fluid or free air. Diverticulosis without evidence diverticulitis. 2. Hiatal hernia is present. 3. LEFT peripelvic cysts are present. Mild RIGHT hydronephrosis and hydroureter without evidence of obstructing calcifications noted. Sequelae of pyelonephritis is a consideration however not evaluated on noncontrast exam. 4. Short segments of a normal appendix are identified. 5. No free fluid or free air or abscess. 6. No radiodense calcifications in the gallbladder.. Electronically Signed: Cyril Mobley MD at 1:40 EDT , Discharge Plan Triage Chief Complaint: Fever ED Provider: Gordon Stephenson Dx/Rx/DC Orders Clinical Impression: Acute pyelonephritis, Hypokalemia due to excessive gastrointestinal loss of potassium Instructions: ED Hypokalemia, ED Pyelonephritis, Female (Adult) Prescriptions: New ciprofloxacin HCl [ciprofloxacin HCl] 500 MG tablet 500 mg PO BID Qty: 14 0RF hydrocodone-acetaminophen [hydrocodone-acetaminophen] 1 TABLET tablet 1 tab PO Q6H PRN PRN (Reason: Pain) 3 Days Qty: 10 0RF ondansetron [ondansetron] 4 MG tablet 8 mg PO Q8H PRN PRN (Reason: Nausea) Qty: 20 0RF No Action L. acidophilus-L. rhamnosus 1 EACH capsule 1 ea PO TIDCM Qty: 21 0RF Primary Care Provider: Brayden Alberto Referrals: Brayden Alberto MD [Primary Care Provider] - 2 Days Disposition Disposition: Home, Self Care
--- NOTE | 2021-08-23 23:07 | RAD_ITS ---
EXAM: XR CHEST, 1 VIEW CLINICAL INDICATION: fever TECHNIQUE: Frontal view of the chest. This report was created using [employer] report generation technology. COMPARISON: January 17, 2021, September 14, 2020 FINDINGS: LUNGS AND PLEURAL SPACES: Unremarkable. No consolidation or edema. No pneumothorax. No effusion. HEART: Unremarkable. Cardiac silhouette not enlarged. MEDIASTINUM: Stable mild peripheral calcification of the aortic arch. No mediastinal widening. BONES/JOINTS: Unremarkable. SOFT TISSUES: Unremarkable. RAD/Chest 1 View (Portable) IMPRESSION: Stable chest. Electronically Signed: Judith Pacheco MD at 0:14 EDT ,
[2021-08-23] MEDS: Morphine 4 MG/ML Syringe IV (23:11)
[2021-08-23] MEDS: Ketorolac 15 MG/ML Vial IV (23:11)
[2021-08-23] MEDS: Ondansetron 4 MG/2 ML Vial IV (23:11)
[2021-08-23] MEDS: 0.9% Normal Saline 1,000 ML 200 ML IV (23:21)
[2021-08-23 23:35] LABS: Absolute Lymphocyte Count 1.76 X10^3/uL (0.83-4.51); Absolute Neutrophil Count 8.3 X10^3/uL (2.0-7.7); Basophil# 0.07 X10^3/uL; Basophil% 0.6 % (0-1); Eosinophil# 0.03 X10^3/uL; Eosinophils% 0.3 % (0-5); Hematocrit 31.7 % (37-47); Hemoglobin 11.2 g/dL (12.0-15.0); Lymphocyte # 1.76 X10^3/ul (0.83-4.51); Lymphocyte % 15.4 % (19-41); Mean Corp Hgb Conc 35.3 g/dL (32-36); Mean Corpuscular Hgb 29.9 pg (27.0-32.0); Mean Corpuscular Volume 84.5 fL (81-99); Monocyte# 1.04 X10^3/uL; Monocyte% 9.1 % (0-10); NRBC Flagged by Analyzer 0 % (0-5); Neutrophil % 72.3 % (47-70); Platelet Count 306 K/mm3 (150-450); RBC Distribution Width CV 12.3 % (11.6-14.6); RBC Distribution Width SD 37.4 fl (35.1-43.9); Red Blood Count 3.75 M/mm3 (4.2-5.4); White Blood Count 11.5 K/mm3 (4.4-11.0)
[2021-08-23 23:36] LABS: Mucous, Urine 0 SEEN /hpf (<or=2+); Squamous Epithelial Cells - UA 0 SEEN /hpf (5-10)
[2021-08-23 23:49] LABS: Color, Urine Yellow (Yellow); Glucose, Dipstick Normal (Normal); Ketone-Dipstick Negative (Negative); Leukocyte Esterase-Dipstick 100 /ul (Negative); Nitrite-Dipstick Negative (Negative); Occult Blood-Urine 10 /ul (Negative); Protein-Dipstick 30 mg/dl (Negative); Urine Bilirubin Dipstick Negative (Negative); Urine Clarity Clear (Clear); Urine Urobilinogen 1 mg/dl (Normal)
[2021-08-23 23:53] LABS: ALB/GLOB Ratio 0.7 RATIO (0.9-2.4); AST(SGOT) 45 U/L (15-37); Alanine Aminotransfer ALT/SGPT 78 U/L (13-56); Albumin, Serum 2.8 g/dL (3.2-5.0); Alkaline Phosphatase 185 U/L (45-117); Anion Gap 11 (5-15); BUN 8 mg/dL (7-18); BUN/Creat Ratio 10.6 RATIO (10-20); Calcium,Total 8.7 mg/dL (8.5-10.1); Chloride 102 mmol/L (98-107); Creatinine, Serum 0.75 mg/dL (0.55-1.02); EST Glomerular Filtration Rate 80 mL/min (>60); Est Glom Filt Rate - Afr Amer 97 mL/min (>60); Estimated Creatinine Clearance 49.16 ml/min; Globulin 4.2 g/dL (2.2-4.2); Glucose 108 mg/dL (74-106); Lipase 63 U/L (73-393); Sodium Level 136 mmol/L (136-145)
[2021-08-23 23:59] LABS: Amorphous Sediment 1+; Bacteria 1+ /hpf (None Seen); Red Blood Cells-Urine 0-5 SEEN /hpf (0-5); White Blood Cells 10-25 SEEN /hpf (0-5)
--- NOTE | 2021-08-24 | CT_ITS ---
INDICATION: Pain R flank/RUQ, fever EXAMINATION: CT ABDOMEN AND PELVIS WITHOUT CONTRAST - CT Abdomen And Pelvis W/O Contrast Injection TECHNIQUE: Helically acquired images were obtained of the abdomen and pelvis without oral or IV contrast. A radiation dose optimization technique was used for this scan. IV Contrast dosage and agent: None. Oral contrast: None. RADIATION DOSAGE (If Supplied By Facility): CTDIvol = ( 6.72 ) mGy, DLP = ( 314.00 ) mGycm COMPARISON: 11/25/2018 FINDINGS: LOWER CHEST: Lung bases are clear. No cardiomegaly or pericardial effusion. LIVER: The liver has normal configuration and density given the limitation of noncontrast exam. No focal mass. GALLBLADDER AND BILIARY TREE: No calcified gallstones. No gallbladder distension or wall edema. No intra- or extrahepatic biliary ductal dilation. PANCREAS: No focal cystic or solid mass. SPLEEN: Normal size without focal cystic or solid mass. ADRENAL GLANDS: No nodules. KIDNEYS AND URETERS: Kidneys have normal configuration. Peripelvic cysts are suspected on the LEFT. There is mild prominence of the RIGHT ureter throughout its abdominal course, however no intraluminal filling defects noted. There is mild soft tissue stranding in the RIGHT perinephric space. PERITONEUM: No ascites or free air. No other fluid collection. BOWEL: 1. Large and small bowel loops have normal configuration. Moderate to extensive sigmoid diverticulosis without evidence of diverticulitis. No masses or bowel obstruction. 2. No evidence of small bowel obstruction. 3. Short segments of a normal appendix are notified. 4. Moderate-sized hiatal hernia is present. LYMPH NODES: No enlarged mesenteric or retroperitoneal lymph nodes. VESSELS: Aorta is non-dilated. URINARY BLADDER: Unremarkable. REPRODUCTIVE ORGANS: No pelvic masses. ABDOMINAL WALL: No discrete abdominal or pelvic wall hernia. BONES: No lytic or blastic abnormality. CT/Abdomen/Pelvis without Cont IMPRESSION: 1. No masses bowel obstruction abscess free fluid or free air. Diverticulosis without evidence diverticulitis. 2. Hiatal hernia is present. 3. LEFT peripelvic cysts are present. Mild RIGHT hydronephrosis and hydroureter without evidence of obstructing calcifications noted. Sequelae of pyelonephritis is a consideration however not evaluated on noncontrast exam. 4. Short segments of a normal appendix are identified. 5. No free fluid or free air or abscess. 6. No radiodense calcifications in the gallbladder.. Electronically Signed: Cyril Mobley MD at 1:40 EDT ,
[2021-08-24 00:14] VITALS: BP 128/58; PULSE 89; RESP 16; O2SAT 93
[2021-08-24 00:17] VITALS: BP 128/58; PULSE 89; RESP 16; TEMP 38.3; O2SAT 93
[2021-08-24 00:18] LABS: Lactic Acid 1.2 mmol/L (0.4-1.9)
[2021-08-24] MEDS: Potassium Chloride Oral Tablet 20 MEQ 40 MEQ PO (00:36)
[2021-08-24] MEDS: Ceftriaxone 1 GM/50 ML BAG IV (00:42)
[2021-08-24] MEDS: Potassium Chloride 10mEq/100mL 10 MEQ/100 ML IV.SOLN. 100 MEQ IV BOLUS (01:24)
[2021-08-24 02:05] VITALS: BP 114/65; PULSE 79; RESP 15; TEMP 36.9; O2SAT 97
--- NOTE | 2021-08-24 14:06 | ED.RN ---
Dr Reinoso aware of pos blood cultures. Pt was sent home with a rx for cipro. Nothing to do at this point until sensitivity comes back.
== END 2021-08-24 02:34 | disposition home or self-care (01) ==
PROVIDERS: Emergency Provider Emergency Medicine; PCP Family Medicine; Visit Provider Emergency Medicine
DX: N10 Acute pyelonephritis (principal); E87.6 Hypokalemia; Z86.16 Personal history of COVID-19
CPT/HCPCS: 71045; 74176; 76705; 80053; 81001; 83605; 83690; 85025; 87040; 87077; 87086; 87088; 87186; 87428; 96365; 96367; 96375; 99284; J7030; A4216; J2405

== ENCOUNTER 2021-12-05 17:29 | Emergency (ER) | payer MEDICARE, OTHER, SELFPAY ==
[2021-12-05 17:30] VITALS: BP 152/122; PULSE 124; RESP 19; TEMP 36.3; O2SAT 99; BMI 21.9
--- NOTE | 2021-12-05 17:45 | EX.ED.DYSGE1 ---
HPI History of Present Illness Chief Complaint: Foreign Body Informant: patient Onset/Context/Timing Onset: Today Context: Sudden Onset Timing: Continuous Quality: Sharp Location: Throat Worsened by: Swallowing Relieved by: Nothing Narrative Narrative: Patient presents with throat pain that began today. Patient states she had a choking episode earlier today after swallowing her vitamins. Patient states she coughed up some powder from her pills. Patient states she feels like she is having some trouble breathing. Patient states she has sharp pain in her throat. Patient states it is worse with swallowing. Patient states she is able to swallow water. Patient has not tried anything else. Patient admits to an episode of nausea and vomiting. Patient denies any chest pain. Patient states she has never had anything like this before. Prior similar symptoms: No PFSH PFSH Medical History (Updated 12/05/21 @ 21:[address] Loki Centeno DO) Sigmoid diverticulitis Home Medications Lactobacillus acidophilus and rhamnosus 15 billion cell capsule 1 ea PO TIDCM #21 caps 12/01/18 [Rx Last Taken Unknown] ciprofloxacin HCl 500 mg tablet 500 mg PO BID #14 TABLETS 08/24/21 [Rx Last Taken Unknown] hydrocodone-acetaminophen 5-325mg 5mg-325mg 1 tab PO Q6H PRN PRN Pain 3 days #10 TABLETS 08/24/21 [Rx Last Taken Unknown] ondansetron 4 mg disintegrating tablet 8 mg PO Q8H PRN PRN Nausea #20 tabs 08/24/21 [Rx Last Taken Unknown] fluoxetine 20 mg capsule mg 12/05/21 [History Last Taken Unknown] fluoxetine 40 mg capsule mg 12/05/21 [History Last Taken Unknown] lansoprazole 30 mg delayed release,disintegrating tablet 30 mg PO TID 5 days #15 tabs 12/05/21 [Rx Last Taken Unknown] topiramate 25 mg tablet mg 12/05/21 [History Last Taken Unknown] Allergy/AdvReac Type Severity Reaction Status Date / Time No Known Allergies Allergy Verified 12/05/21 17:31 Surgical History (Updated 12/05/21 @ 17:[address] Loki Centeno DO) History of back surgery Social History Smoking Status: Never smoker ROS ROS ED Constitutional Constitutional ED: Denies chills or fever(s) Eyes Eyes: Denies blurry vision or change in vision ENT ENT ED: Reports sore throat; Denies rhinorrhea Cardiovascular Cardiovascular: Denies chest pain or palpitations Respiratory/Chest Respiratory/Chest: Reports dyspnea; Denies cough Gastrointestinal Gastrointestinal: Reports nausea and vomiting Genitourinary Genitourinary ED: Denies dysuria or hematuria Musculoskeletal Musculoskeletal: Denies back pain or neck pain Integumentary Denies abscess or rash Neurologic Neurologic: Denies headache(s) or weakness Allergic/Immunologic Allergic/Immunologic ED: Denies mouth swelling or urticaria EXAM Physical Exam Const Vital Signs: 12/05/21 17:30 12/05/21 17:36 12/05/21 18:07 Temperature 97.4 F L Temperature Source Temporal Pulse Rate 124 H 97 Respiratory Rate 19 H 18 Respiratory Effort Short of Breath Respiratory Pattern Tachypnea Blood Pressure 152/122 H 155/116 H Blood Pressure Mean 132 129 Pulse Ox 99 100 Oxygen Delivery Method Room Air Room Air Room Air 12/05/21 18:25 12/05/21 18:52 12/05/21 20:00 Temperature Temperature Source Pulse Rate 100 90 83 Respiratory Rate 14 12 19 H Respiratory Effort Respiratory Pattern Normal Blood Pressure 125/108 H 129/77 H Blood Pressure Mean 113 94 Pulse Ox 100 99 Oxygen Delivery Method Room Air Room Air Positive well nourished and well developed General Appearance ED: well developed and NAD HEENT Reports moist mucous membranes HEENT Narrative: Oropharynx is clear. There is no edema. There is no erythema. There is no postnasal drainage. Neck supple and no JVD Resp normal respiratory effort and clear to auscultation bilaterally Cardio regular rate and regular rhythm GI non-tender Palpation: soft Neuro oriented x3, CN's II-XII intact bilaterally and no sensory deficits noted Sensorium / Orientation: alert Motor Exam: strength 5/5 throughout Psych mental status grossly normal Skin no rashes or lesions noted MDM MDM MDM Narrative Medical decision making narrative: Patient was given a GI cocktail initially. Patient states this made her symptoms worse. Patient was given a dose of glucagon. Patient was given a DuoNeb aerosol here. Soft tissue neck x-ray was obtained. There are 2 views. On my interpretation, there is no edema of the airway. There are no foreign bodies noted. Radiologist also interpreted the x-rays and agrees. Patient was observed in the emergency department. Patient was able to swallow water but states it was painful. Patient was having difficulty swallowing ice chips. Case was discussed with Dr. Stroud from gastroenterology. He stated this is most likely pill esophagitis. He recommended placing the patient on sublingual Prevacid for the next 5 days. Patient is agreeable with this. Patient wants to go home. Patient was instructed to use continue with ice chips and liquids to start. Patient was instructed to advance her diet as she feels better. Patient was instructed to hold her vitamins until she feels better. Patient understood and was agreeable with the plan. All questions were answered. Radiography Diagnostic Testing: Clinical Impression(s) from Imaging Studies Soft Tissue Neck X-Ray 12/05/21 18:17 IMPRESSION: Normal x-ray soft tissue neck. Electronically Signed: Chalino Johnson DO at 18:33 EDT Reading Location ID and State: [address] [place] [address] Tel [phone], Service support , Discharge Plan Triage Chief Complaint: Foreign Body ED Provider: Loki Centeno Dx/Rx/DC Orders Clinical Impression: Pill esophagitis, Odynophagia Instructions: ED Dysphagia (Adult) Prescriptions: New lansoprazole 30 mg tablet,disintegrat, delay rel 30 mg PO TID 5 Days Qty: 15 0RF No Action L. acidophilus-L. rhamnosus 1 EACH capsule 1 ea PO TIDCM Qty: 21 0RF ciprofloxacin HCl [ciprofloxacin HCl] 500 MG tablet 500 mg PO BID Qty: 14 0RF hydrocodone-acetaminophen [hydrocodone-acetaminophen] 1 TABLET tablet 1 tab PO Q6H PRN PRN (Reason: Pain) 3 Days Qty: 10 0RF ondansetron [ondansetron] 4 MG tablet 8 mg PO Q8H PRN PRN (Reason: Nausea) Qty: 20 0RF fluoxetine 40 mg capsule Label Comments: take 1 capsule by mouth every morning IN ADDITION TO 20 MG CAPSULE topiramate 25 mg tablet fluoxetine 20 mg capsule Label Comments: take 1 capsule by mouth every morning IN ADDITION TO 40 MG CAPSULE Primary Care Provider: Brayden Alberto Referrals: Brayden Alberto MD [Primary Care Provider] - 3-5 Days Diego Stroud DO [Med Staff - Active Staff] - 3-5 Days Disposition Disposition: Home, Self Care
[2021-12-05] MEDS: Glucagon 1 MG/ML Syringe IV (17:58)
[2021-12-05] MEDS: Mag Hydrox/Al Hydrox/Simeth 30 ML UDC PO (17:58)
[2021-12-05 18:07] VITALS: BP 155/116; PULSE 97; RESP 18; O2SAT 100
--- NOTE | 2021-12-05 18:17 | RAD_ITS ---
STUDY: X-RAY - SOFT TISSUE NECK REASON FOR EXAM: Female, 71 years old. Odynophagia. TECHNIQUE: 2 view(s) of the neck were obtained. COMPARISON: None. FINDINGS: Normal visualized nasopharynx, oropharynx, hypopharynx. Normal epiglottis. Normal visualized subglottic tracheal air column. Normal prevertebral soft tissue structures. There are degenerative changes of the cervical spine with cervical spondylosis. Bilateral carotid artery calcifications. No foreign body. RAD/Neck for Soft Tissue IMPRESSION: Normal x-ray soft tissue neck. Electronically Signed: Chalino Johnson DO at 18:33 EDT ,
[2021-12-05] MEDS: Ipratropium/Albuterol Sulfate 3 ML AMPUL.NEB INHALATION (18:24)
[2021-12-05 18:25] VITALS: PULSE 100; RESP 14
[2021-12-05 18:52] VITALS: BP 125/108; PULSE 90; RESP 12; O2SAT 100
[2021-12-05 20:00] VITALS: BP 129/77; PULSE 83; RESP 19; O2SAT 99
[2021-12-05 21:14] VITALS: BP 139/71; PULSE 95; RESP 18; O2SAT 98
== END 2021-12-05 21:35 | disposition home or self-care (01) ==
PROVIDERS: Emergency Provider Emergency Medicine; PCP Family Medicine; Visit Provider Emergency Medicine
DX: R13.10 Dysphagia, unspecified (principal); K20.80 Other esophagitis without bleeding; R11.2 Nausea with vomiting, unspecified; R06.00 Dyspnea, unspecified
CPT/HCPCS: 70360; 94640; 96374; 99284; A4216; J1610

== ENCOUNTER → 2022-06-22 | Outpatient (CLI) | payer MEDICARE, SELFPAY ==
[2022-06-22 12:58] LABS: Mucous, Urine 0 SEEN /hpf (<or=2+); Squamous Epithelial Cells - UA 0 SEEN /hpf (5-10)
[2022-06-22 13:10] LABS: Color, Urine Yellow (Yellow); Glucose, Dipstick Normal (Normal); Ketone-Dipstick 5 mg/dl (Negative); Leukocyte Esterase-Dipstick 500 /ul (Negative); Nitrite-Dipstick Negative (Negative); Occult Blood-Urine 150 /ul (Negative); Protein-Dipstick 30 mg/dl (Negative); Specific Gravity, Urine 1.015 (1.002-1.030); Urine Bilirubin Dipstick Negative (Negative); Urine Clarity Cloudy (Clear); Urine Urobilinogen Normal (Normal); Urine pH 6.5 (5.0 - 8.0)
[2022-06-22 13:21] LABS: Bacteria 1+ /hpf (None Seen); Red Blood Cells-Urine 10-25 SEEN /hpf (0-5); White Blood Cells 25-50 SEEN /hpf (0-5)
== END | disposition home or self-care (01) ==
PROVIDERS: PCP Family Medicine; Referring Provider Physician Assistant; Visit Provider Physician Assistant
DX: N39.0 Urinary tract infection, site not specified (principal); R30.0 Dysuria
CPT/HCPCS: 81001; 87086; 87088; 87186

== ENCOUNTER 2022-10-13 04:29 | Emergency (ER) | payer MEDICARE, SELFPAY ==
[2022-10-13 04:30] VITALS: BP 151/89; PULSE 80; RESP 18; TEMP 36.6; O2SAT 98; BMI 25.5
--- NOTE | 2022-10-13 04:44 | CT_ITS ---
INDICATION: abdominal pain EXAMINATION: CT ABDOMEN AND PELVIS WITHOUT CONTRAST - CT Abdomen And Pelvis W/O Contrast Injection TECHNIQUE: Helically acquired images were obtained of the abdomen and pelvis without oral or IV contrast. A radiation dose optimization technique was used for this scan. IV Contrast dosage and agent: None. Oral contrast: None. COMPARISON: August 24, 2021. FINDINGS: LOWER CHEST: Lung bases are clear. No cardiomegaly or pericardial effusion. LIVER: Homogeneous. No focal mass. GALLBLADDER AND BILIARY TREE: No calcified gallstones. No gallbladder distension or wall edema. No intra- or extrahepatic biliary ductal dilation. PANCREAS: No focal cystic or solid mass. SPLEEN: Normal size without focal cystic or solid mass. ADRENAL GLANDS: No nodules. KIDNEYS AND URETERS: Left renal parapelvic cysts. No hydronephrosis. No perinephric inflammation. No nephrolithiasis. Unremarkable ureters and bladder. PERITONEUM: No ascites or free air. No other fluid collection. BOWEL: Minimal hiatal hernia. No acute gastric finding. No small bowel distention or focal wall thickening. Normal appendix. Large colonic stool burden from cecum to rectum. Distal colonic diverticulosis without focal inflamed diverticulum or surrounding inflammation to suggest diverticulitis. LYMPH NODES: No enlarged mesenteric or retroperitoneal lymph nodes. VESSELS: Aorta is non-dilated. URINARY BLADDER: Unremarkable. REPRODUCTIVE ORGANS: Unremarkable uterus and adnexa.. ABDOMINAL WALL: Fat-containing umbilical hernia without inflammation. BONES: No lytic or blastic abnormality. CT/Abdomen/Pelvis without Cont IMPRESSION: Large colonic stool burden as can be seen with constipation. Distal colonic diverticulosis without evidence of diverticulitis. Well filled bladder. Correlate for ability to void. Minimal hiatal hernia. Electronically Signed: Bryan Boss MD at 6:28 EDT ,
[2022-10-13] MEDS: 0.9% Normal Saline 1,000 ML 1000 ML IV (04:49)
[2022-10-13] MEDS: Ondansetron 4 MG/2 ML Vial IV (04:49)
[2022-10-13] MEDS: Morphine 4 MG/ML Syringe IV (04:50)
[2022-10-13 04:51] LABS: Absolute Lymphocyte Count 2.53 X10^3/uL (0.83-4.51); Basophil# 0.09 X10^3/uL; Basophil% 0.8 % (0-1); Eosinophil# 0.35 X10^3/uL; Hemoglobin 12.6 g/dL (12.0-15.0); Lymphocyte # 2.53 X10^3/ul (0.83-4.51); Lymphocyte % 21.4 % (19-41); Mean Corp Hgb Conc 34.1 g/dL (32-36); Mean Corpuscular Volume 85.3 fL (81-99); Mean Platelet Vol. 9.1 fl (6.2-12.0); Monocyte# 0.77 X10^3/uL; Monocyte% 6.5 % (0-10); NRBC Flagged by Analyzer 0 % (0-5); Neutrophil # 8.02 X10^3/uL (2.7-7.7); Neutrophil % 67.9 % (47-70); Platelet Count 343 K/mm3 (150-450); RBC Distribution Width CV 12.3 % (11.6-14.6); RBC Distribution Width SD 38.4 fl (35.1-43.9); Red Blood Count 4.34 M/mm3 (4.2-5.4); White Blood Count 11.8 K/mm3 (4.4-11.0)
--- NOTE | 2022-10-13 05:02 | EX.ED.DYSGE1 ---
HPI History of Present Illness Chief Complaint: Abd Pain Narrative Narrative: Patient presents with epigastric pain. had similar symptoms yesterday but he improved. She is complaining of epigastric and some right upper quadrant pain with nausea and vomiting. No diarrhea. The pain does not radiate into her back. No recent fevers or chills. [facility] Medical History (Updated 10/13/22 @ 06:[address] Fermin King MD) Sigmoid diverticulitis Urinary tract infection with hematuria Home Medications Lactobacillus acidophilus and rhamnosus 15 billion cell capsule 1 ea PO TIDCM #21 caps 12/01/18 [Rx Last Taken Unknown] fluoxetine 20 mg capsule 20 mg PO DAILY 12/05/21 [History Last Taken Unknown] fluoxetine 40 mg capsule 40 mg PO DAILY 12/05/21 [History Last Taken Unknown] peg 3350-electrolytes 236 gram-22.74 gram-6.74 gram-5.86 gram solution (Golytely) 240 ml PO Q10M PRN #4,000 mL 10/13/22 [Rx Last Taken Unknown] Allergy/AdvReac Type Severity Reaction Status Date / Time No Known Allergies Allergy Verified 10/13/22 04:35 Surgical History History of back surgery Social History Smoking Status: Never smoker ROS ROS ED ROS Narrative Past medical history: Reviewed Medications: Reviewed Social history: Noncontributory Review of systems: All systems negative except as indicated General: No fever Eyes: No visual changes ENT: No upper airway congestion, normal voice Neck: No neck pain Cardiovascular: No chest pain Respiratory: No shortness of breath or cough Gastrointestinal: Abdominal pain as in HPI Genitourinary: No dysuria Musculoskeletal: Denies myalgias no difficulty with ambulation Skin: No rash Neurological: No memory loss, confusion or any focal weakness EXAM Physical Exam Narrative Exam Narrative: Physical exam General: She appears somewhat uncomfortable Head: Normocephalic, Atraumatic Eyes: Conjunctiva not pale ENT: Moist mucous membranes Neck: Supple, Nontender, No lymphadenopathy Cardiovascular: Regular rate, Regular rhythm Respiratory: No distress, CTA bilaterally Abdomen: Soft, epigastric tenderness to palpation. Some right upper quadrant pain but negative [place]'s. Back: Nontender, Normal Inspection. Negative for: CVA tenderness Extremities: Nontender, No edema Skin: Normal color, No rash Neurological: Alert, Normal Strength, Normal Sensation Const Vital Signs: 10/13/22 04:30 Temperature 97.9 F Temperature Source Temporal Pulse Rate 80 Respiratory Rate 18 Blood Pressure 151/89 H Blood Pressure Mean 109 Pulse Ox 98 Oxygen Delivery Method Room Air MDM MDM MDM Narrative Medical decision making narrative: Patient was found to have significant constipation, she does not have any evidence of pancreatitis, gallbladder disease or appendicitis or diverticulitis. She will be given MiraLAX for home otherwise she will be discharged in stable condition Lab Data Labs: Laboratory Results - last 24 hr 10/13/22 04:40 WBC 11.8 H RBC 4.34 Hgb 12.6 Hct 37.0 MCV 85.3 MCH 29.0 MCHC 34.1 RDW Std Deviation 38.4 RDW Coeff of Heather 12.3 Plt Count 343 MPV 9.1 Immature Gran % (Auto) 0.400 Neut % (Auto) 67.9 Lymph % (Auto) 21.4 [place] % (Auto) 6.5 Eos % (Auto) 3.0 Baso % (Auto) 0.8 Absolute Neuts (auto) 8.0 H Absolute Lymphs (auto) 2.53 Nucleated RBC % 0 Sodium 137 Potassium 3.6 Chloride 107 Carbon Dioxide 22.0 Anion Gap 8 BUN 11 Creatinine 0.68 Estim Creat Clear Calc 35.99 Est GFR (MDRD) Af Amer 108 Est GFR (MDRD) Non-Af 89 BUN/Creatinine Ratio 16.1 Glucose 118 H Calcium 9.0 Total Bilirubin 0.30 AST 14 L ALT 20 Alkaline Phosphatase 101 Total Protein 7.2 Albumin 3.4 Globulin 3.8 Albumin/Globulin Ratio 0.9 Lipase 31 Radiography Diagnostic Testing: Clinical Impression(s) from Imaging Studies Abdomen/Pelvis CT 10/13/22 04:44 IMPRESSION: Large colonic stool burden as can be seen with constipation. Distal colonic diverticulosis without evidence of diverticulitis. Well filled bladder. Correlate for ability to void. Minimal hiatal hernia. Electronically Signed: Bryan Boss MD at 6:28 EDT Reading Location ID and State: [facility] / [place] Tel , Service support , Discharge Plan Triage Chief Complaint: Abd Pain ED Provider: Fermin King Dx/Rx/DC Orders Clinical Impression: Acute constipation, Abdominal pain Instructions: Abdominal Pain, ED Constipation (Adult) Prescriptions: New peg 3350-electrolytes [Golytely] 236-22.74-6.74 -5.86 gram recon soln 240 ml PO Q10M PRN Qty: 4000 0RF Rx Instructions: until big BM No Action L. acidophilus-L. rhamnosus 1 EACH capsule 1 ea PO TIDCM Qty: 21 0RF fluoxetine 40 mg capsule 40 mg PO DAILY Patient Comments: take 1 capsule by mouth every morning IN ADDITION TO 20 MG CAPSULE fluoxetine 20 mg capsule 20 mg PO DAILY Patient Comments: take 1 capsule by mouth every morning IN ADDITION TO 40 MG CAPSULE Primary Care Provider: Brayden Alberto Referrals: Brayden Alberto MD [Primary Care Provider] - 3-5 Days if not improving Disposition Disposition: Home, Self Care
[2022-10-13 05:08] LABS: ALB/GLOB Ratio 0.9 RATIO (0.9-2.4); AST(SGOT) 14 U/L (15-37); Alanine Aminotransfer ALT/SGPT 20 U/L (13-56); Albumin, Serum 3.4 g/dL (3.2-5.0); Alkaline Phosphatase 101 U/L (45-117); Anion Gap 8 (5-15); BUN 11 mg/dL (7-18); BUN/Creat Ratio 16.1 RATIO (10-20); Chloride 107 mmol/L (98-107); Creatinine, Serum 0.68 mg/dL (0.55-1.02); EST Glomerular Filtration Rate 89 mL/min (>60); Est Glom Filt Rate - Afr Amer 108 mL/min (>60); Estimated Creatinine Clearance 35.99 ml/min; Globulin 3.8 g/dL (2.2-4.2); Glucose 118 mg/dL (74-106); Lipase 31 U/L (13-75); Potassium 3.6 mmol/L (3.5-5.1); Protein, Total 7.2 g/dL (6.4-8.2); Sodium Level 137 mmol/L (136-145)
[2022-10-13] MEDS: Famotidine 200 MG/20 ML MDV 20 MG in 0.9% Normal Saline (Pres. free 8 ML 300 MG IV (05:56)
[2022-10-13] MEDS: HYDROmorphone 0.5 MG/0.5 ML SYRINGE IV (05:56)
[2022-10-13 07:05] VITALS: BP 142/60; PULSE 79; RESP 18
== END 2022-10-13 07:06 | disposition home or self-care (01) ==
PROVIDERS: Emergency Provider Emergency Medicine; PCP Family Medicine; Visit Provider Emergency Medicine
DX: K59.00 Constipation, unspecified (principal)
CPT/HCPCS: 74176; 80053; 83690; 85025; 96361; 96365; 96375; 99282; J7030; A4216; J2405; J3490

== ENCOUNTER → 2022-10-17 | Outpatient (CLI) | payer MEDICARE, SELFPAY ==
--- NOTE | 2022-10-17 09:48 | NM_ITS ---
CLINICAL: 71-year-old female with history of right upper quadrant abdominal pain. RADIONUCLIDE HEPATOBILIARY SCINTIGRAPHY COMPARISON: Gallbladder ultrasound report 08/23/2021, CT of the abdomen-pelvis report 10/13/2022 FINDINGS: Following the intravenous administration of 5.3 mCi of 99m Tc Mebrofenin, hepatobiliary images reveal: 1. Relatively prompt and homogeneous radiopharmaceutical concentration is noted by a normal sized liver. No parenchymal defects are identified. 2. Gallbladder activity is identified at 30 minutes post radiopharmaceutical administration. 3. Small intestinal tract is observed at 15 minutes following tracer injection. 4. Washout of the radiopharmaceutical by the hepatic parenchyma appears qualitatively normal. 5. There is transient duodenal-gastric reflux apparent at 45 minutes following tracer provision. Cholecystokinin (0.02 ug/kg) was administered intravenously over a 30-minute period. The post CCK gallbladder ejection fraction calculated at 20 minutes following Cholecystokinin administration was noted to be < 5 % (normal greater than 35%). NM/Hepatobilliary Img w/Pharm Int IMPRESSION: 1. ABNORMAL 99m Tc Mebrofenin hepatobiliary imaging examination with Cholecystokinin. A. A gallbladder ejection fraction calculated to be less than 35% following the administration of Cholecystokinin is consistent with the presence of functional hepatobiliary disease (gallbladder and/or sphincter of Oddi dyskinesia) and/or organic hepatobiliary disease (chronic acalculous cholecystitis and/or cystic duct syndrome) in patients with intermediate to high pretest probabilities of hepatobiliary illness. (Yamilet Wooten et al, Journal of Nuclear Medicine 32:1695, 1991). B. Transient duodenal gastric reflux is demonstrated prior to cholecystokinin administration. Electronically Signed: Cyril Cortez, at 13:09 EDT ,
== END | disposition home or self-care (01) ==
LOC: NM 09:46
PROVIDERS: PCP Family Medicine; Referring Provider Family Medicine; Visit Provider Family Medicine
DX: R10.11 Right upper quadrant pain (principal); R11.0 Nausea
CPT/HCPCS: 78227; A9537; J2805

== ENCOUNTER 2023-09-13 19:32 | Emergency (ER) | payer MEDICARE, SELFPAY ==
[2023-09-13 19:32] VITALS: BP 144/67; PULSE 98; RESP 16; TEMP 36.6; O2SAT 100; BMI 22.4
--- NOTE | 2023-09-13 20:16 | ED.VIS.GI ---
HPI <KEVIN Vazquez - Last Filed: 09/13/23 22:14> HPI - GI History of Present Illness Chief Complaint: Diarrhea Narrative Narrative: Patient presenting today with diarrhea she has had over the past 6 days. She reports multiple episodes of loose stool daily, she thinks she has had close to 30 episodes of loose stool today. She has had intermittent lower abdominal cramping as well. She does have a remote history of C. difficile 4 years ago after being treated with Cipro for diverticulitis. She denies any recent antibiotics, fevers, chills, vomiting, melena, and hematochezia. She does report a history of ulcerative colitis. PFSH <KEVIN Vazquez - Last Filed: 09/13/23 22:14> [facility] Medical History Urinary tract infection with hematuria Sigmoid diverticulitis Home Medications ?Medication ?Instructions ?Recorded ?Last Taken ?Type Lactobacillus acidophilus and 1 ea PO TIDCM #21 caps 12/01/18 Unknown Rx rhamnosus 15 billion cell capsule fluoxetine 20 mg capsule 20 mg PO DAILY 12/05/21 Unknown History fluoxetine 40 mg capsule 40 mg PO DAILY 12/05/21 Unknown History peg 3350-electrolytes 236 240 ml PO Q10M PRN #4,000 mL 10/13/22 Unknown Rx gram-22.74 gram-6.74 gram-5.86 gram solution (Golytely) potassium chloride 20 mEq 20 meq PO BID #8 tabs 09/13/23 Unknown Rx tablet,extended release Allergy/AdvReac Type Severity Reaction Status Date / Time No Known Allergies Allergy Verified 09/13/23 19:33 Surgical History History of back surgery Social History Smoking Status: Never smoker ROS <KEVIN Vazquez - Last Filed: 09/13/23 22:14> ROS ED Constitutional Constitutional ED: Denies chills or fever(s) Cardiovascular Cardiovascular: Denies chest pain Respiratory/Chest Respiratory/Chest: Denies dyspnea Gastrointestinal Gastrointestinal: Reports diarrhea and nausea; Denies abdominal pain, melena or vomiting Genitourinary Genitourinary ED: Denies dysuria or urinary urgency Musculoskeletal Musculoskeletal: Denies arthralgias or myalgias Integumentary Denies rash Neurologic Neurologic: Denies weakness EXAM <KEVIN Vazquez - Last Filed: 09/13/23 22:14> Physical Exam Const Vital Signs: 09/13/23 19:32 09/13/23 21:54 Temperature 98 F Temperature Source Temporal Pulse Rate 98 70 Respiratory Rate 16 18 Blood Pressure 144/67 H 156/81 H Blood Pressure Mean 92 106 Pulse Ox 100 100 Oxygen Delivery Method Room Air Room Air Positive well nourished, well developed and no apparent distress General Appearance ED: well developed HEENT Reports normocephalic and head/scalp atraumatic Mouth ED: Yes moist mucous membranes normal Eyes PERRL and EOMs intact bilaterally Neck full ROM and supple Chest Wall inspection of chest normal Resp normal respiratory effort and clear to auscultation bilaterally Cardio regular rate and regular rhythm GI soft to palpation, non-distended and no masses GI Narrative: Minimal tenderness across the lower abdomen without any rigidity or guarding. Back/Spine normal ROM and normal to inspection Extremity normal to inspection and full ROM Neuro oriented x3, CN's II-XII intact bilaterally, moves all extremities, no focal motor deficits and no sensory deficits noted Sensorium / Orientation: awake and alert Psych mental status grossly normal and thought process normal Skin no rashes or lesions noted and no wounds <Dr. Gordon Stephenson MD - Last Filed: 09/14/23 00:23> Physical Exam Const Vital Signs: 09/13/23 19:32 09/13/23 21:54 Temperature 98 F Temperature Source Temporal Pulse Rate 98 70 Respiratory Rate 16 18 Blood Pressure 144/67 H 156/81 H Blood Pressure Mean 92 106 Pulse Ox 100 100 Oxygen Delivery Method Room Air Room Air MDM <KEVIN Vazquez - Last Filed: 09/13/23 22:14> [facility] MDM Narrative Medical decision making narrative: Patient presenting today due to diarrhea she has had over the past 6 days. She does have a history of C. difficile, she has not had any antibiotics since having C. difficile 4 years ago. If she is able to provide a stool sample we will test it. She was given Zofran and IV fluids. She was given potassium replacement. Disposition and workup is pending at this time. Lab Data Attestation: I reviewed the patient's lab results. Lab results narrative: WBC 11.2, potassium 3.1, alkaline phosphatase 133, albumin 2.9 Labs: Laboratory Results - last 24 hr 09/13/23 21:00 WBC 11.2 H RBC 3.94 L Hgb 11.5 L Hct 33.8 L MCV 85.8 MCH 29.2 MCHC 34.0 RDW Std Deviation 39.9 RDW Coeff of Heather 12.7 Plt Count 401 MPV 9.2 Immature Gran % (Auto) 0.400 Neut % (Auto) 73.0 H Lymph % (Auto) 18.8 L [place] % (Auto) 7.0 Eos % (Auto) 0.5 Baso % (Auto) 0.3 Absolute Neuts (auto) 8.2 H Absolute Lymphs (auto) 2.10 Nucleated RBC % 0 Sodium 139 Potassium 3.1 L Chloride 108 H Carbon Dioxide 26.0 Anion Gap 5 BUN 17 Creatinine 0.96 Estim Creat Clear Calc 50.00 Est GFR (MDRD) Af Amer 73 Est GFR (MDRD) Non-Af 60 BUN/Creatinine Ratio 17.7 Glucose 101 Calcium 8.6 Total Bilirubin 0.30 AST 20 ALT 38 Alkaline Phosphatase 133 H Total Protein 6.8 Albumin 2.9 L Globulin 3.9 Albumin/Globulin Ratio 0.7 L <Dr. Gordon Stephenson MD - Last Filed: 09/14/23 00:23> [facility] Lab Data Labs: Laboratory Results - last 24 hr 09/13/23 21:00 WBC 11.2 H RBC 3.94 L Hgb 11.5 L Hct 33.8 L MCV 85.8 MCH 29.2 MCHC 34.0 RDW Std Deviation 39.9 RDW Coeff of Heather 12.7 Plt Count 401 MPV 9.2 Immature Gran % (Auto) 0.400 Neut % (Auto) 73.0 H Lymph % (Auto) 18.8 L [place] % (Auto) 7.0 Eos % (Auto) 0.5 Baso % (Auto) 0.3 Absolute Neuts (auto) 8.2 H Absolute Lymphs (auto) 2.10 Nucleated RBC % 0 Sodium 139 Potassium 3.1 L Chloride 108 H Carbon Dioxide 26.0 Anion Gap 5 BUN 17 Creatinine 0.96 Estim Creat Clear Calc 50.00 Est GFR (MDRD) Af Amer 73 Est GFR (MDRD) Non-Af 60 BUN/Creatinine Ratio 17.7 Glucose 101 Calcium 8.6 Total Bilirubin 0.30 AST 20 ALT 38 Alkaline Phosphatase 133 H Total Protein 6.8 Albumin 2.9 L Globulin 3.9 Albumin/Globulin Ratio 0.7 L Treatment and Re-Evaluation Comments:: I have personally performed a face to face assessment of the patient and have reviewed the NIRALI Note. I performed a substantive portion of the visit including all aspects of the following. My bullock findings include: History is profuse diarrhea that is foul-smelling, she thinks now it started actually 1.5 weeks ago, and lower abdominal pain cramping started after the diarrhea but has been persistent. No nausea or vomiting. Subjective fevers. Thinks this feels like C. difficile, she had 1 episode 5 years ago which was the last time she was on antibiotics, Cipro. No recent long travel no recent antibiotics of any kind, no recent hospitalization, or known sick contacts. Exam is well-appearing. No tachycardia. Mild tenderness throughout the lower abdomen no guarding or rebound. Medical Decison Making: stool studies ordered, she eventually gave diarrhea we reviewed the labs, I do not think she needs a CT scan, she has mild tenderness in her lower abdomen but fairly benign and she agrees this does not feel like diverticulitis. Her C. difficile came back negative, white blood cell smear positive. The bacterial panel PCR will take 3 hours to come back and it is midnight so understandably they do not want to wait for it. Follow-up with PCP for results recommended. I am not treating her with antibiotics empirically given her history of C. difficile. Talked about this she is comfortable with that plan we did prescribe her some potassium to replace that which she probably lost with all of the diarrhea. Other additions or changes: [None] Discharge Plan Triage Chief Complaint: Diarrhea ED Midlevel Provider: Ann-Marie Saavedra ED Provider: Gordon Stephenson Dx/Rx/DC Orders Clinical Impression: Acute diarrhea, Hypokalemia due to excessive gastrointestinal loss of potassium, Microscopic colitis Instructions: ED Diarrhea, Unknown Cause, ED Hypokalemia Prescriptions: New potassium chloride 20 mEq tablet extended release 20 meq PO BID Qty: 8 0RF No Action L. acidophilus-L. rhamnosus 1 EACH capsule 1 ea PO TIDCM Qty: 21 0RF fluoxetine 40 mg capsule 40 mg PO DAILY Patient Comments: take 1 capsule by mouth every morning IN ADDITION TO 20 MG CAPSULE fluoxetine 20 mg capsule 20 mg PO DAILY Patient Comments: take 1 capsule by mouth every morning IN ADDITION TO 40 MG CAPSULE peg 3350-electrolytes [Golytely] 236-22.74-6.74 -5.86 gram recon soln 240 ml PO Q10M PRN Qty: 4000 0RF Rx Instructions: until big BM Primary Care Provider: Brayden Alberto Referrals: Brayden Alberto MD [Primary Care Provider] - 3-5 Days (and/or your GI doctor) Print Language: Tuvaluan Disposition Disposition: Home, Self Care
[2023-09-13] MEDS: Dicyclomine 10 MG Capsule 20 MG PO (20:57)
[2023-09-13] MEDS: Ondansetron 4 MG/2 ML Vial IV (20:58)
[2023-09-13] MEDS: 0.9% Normal Saline (1000mL) 1,000 ML 999 ML IV (20:58)
[2023-09-13 21:13] LABS: Absolute Neutrophil Count 8.2 X10^3/uL (2.0-7.7); Basophil# 0.03 X10^3/uL; Basophil% 0.3 % (0-1); Eosinophil# 0.06 X10^3/uL; Eosinophils% 0.5 % (0-5); Hematocrit 33.8 % (37-47); Hemoglobin 11.5 g/dL (12.0-15.0); Lymphocyte % 18.8 % (19-41); Mean Corpuscular Hgb 29.2 pg (27.0-32.0); Mean Corpuscular Volume 85.8 fL (81-99); Mean Platelet Vol. 9.2 fl (6.2-12.0); Monocyte# 0.78 X10^3/uL; NRBC Flagged by Analyzer 0 % (0-5); Neutrophil # 8.17 X10^3/uL (2.7-7.7); Platelet Count 401 K/mm3 (150-450); RBC Distribution Width CV 12.7 % (11.6-14.6); RBC Distribution Width SD 39.9 fl (35.1-43.9); Red Blood Count 3.94 M/mm3 (4.2-5.4); White Blood Count 11.2 K/mm3 (4.4-11.0)
[2023-09-13 21:28] LABS: ALB/GLOB Ratio 0.7 RATIO (0.9-2.4); AST(SGOT) 20 U/L (15-37); Alanine Aminotransfer ALT/SGPT 38 U/L (13-56); Albumin, Serum 2.9 g/dL (3.2-5.0); Alkaline Phosphatase 133 U/L (45-117); Anion Gap 5 (5-15); BUN 17 mg/dL (7-18); BUN/Creat Ratio 17.7 RATIO (10-20); Calcium,Total 8.6 mg/dL (8.5-10.1); Chloride 108 mmol/L (98-107); Creatinine, Serum 0.96 mg/dL (0.55-1.02); EST Glomerular Filtration Rate 60 mL/min (>60); Est Glom Filt Rate - Afr Amer 73 mL/min (>60); Globulin 3.9 g/dL (2.2-4.2); Glucose 101 mg/dL (74-106); Potassium 3.1 mmol/L (3.5-5.1); Protein, Total 6.8 g/dL (6.4-8.2); Sodium Level 139 mmol/L (136-145)
[2023-09-13] MEDS: Potassium Chloride Oral Tablet 20 MEQ 40 MEQ PO (21:52)
[2023-09-13 21:54] VITALS: BP 156/81; PULSE 70; RESP 18; O2SAT 100
[2023-09-14] MEDS: Potassium Chloride Oral Tablet 20 MEQ PO (00:12)
[2023-09-14 00:19] VITALS: BP 126/75; PULSE 78; RESP 18; TEMP 36.7; O2SAT 100
== END 2023-09-14 00:20 | disposition home or self-care (01) ==
PROVIDERS: Physician Assistant; Emergency Provider Emergency Medicine; PCP Family Medicine; Visit Provider Emergency Medicine
DX: K52.839 Microscopic colitis, unspecified (principal); E87.6 Hypokalemia; R19.7 Diarrhea, unspecified
CPT/HCPCS: 80053; 83630; 85025; 87177; 87209; 87493; 87506; 96361; 96374; 99283; J7030; A4216; J2405

== ENCOUNTER → 2023-11-05 | Outpatient (CLI) | payer MEDICARE, SELFPAY ==
[2023-11-05 18:18] LABS: CRP < 2.90 mg/L (0.0-3.0)
[2023-11-07 18:11] LABS: Endomysial Antibody IgA Negative (Negative); Immunoglobulin A 130 mg/dL (64-422); t-Transglutaminase IgA <2 U/mL (0-3)
== END | disposition home or self-care (01) ==
LOC: MTLAB 15:34
PROVIDERS: PCP Family Medicine; Referring Provider Internal Medicine Gastroenterology; Visit Provider Internal Medicine Gastroenterology
DX: R19.7 Diarrhea, unspecified (principal)
CPT/HCPCS: 36415; 82784; 83516; 86140; 86255